=== PATIENT | female | born 1975 | race Caucasian/White ===

== ENCOUNTER 2017-08-14 10:49 | Outpatient (CLI) | payer OTHER ==
--- NOTE | 2017-08-16 18:21 | Mammography Report ---
DIGITAL SCREENING MAMMOGRAM: 08/14/2017 CLINICAL INDICATION: A 42-year-old nulliparous patient for screening. TECHNIQUE: Routine CC and MLO projections were obtained of the breasts. FINDINGS: The breasts demonstrate heterogeneously dense fibroglandular parenchyma bilaterally. No suspicious masses, clustered microcalcifications, or regions of architectural distortion are identified. IMPRESSION: NEGATIVE EXAMINATION. RECOMMENDATION: ROUTINE ANNUAL SCREENING UNLESS OTHERWISE CLINICALLY INDICATED. BIRADS category 1-negative. STANDARD QUALIFYING STATEMENTS 1. This examination was reviewed with the aid of Computed-Aided Detection (CAD). 2. A negative or benign imaging report should not delay biopsy if clinically suspicious findings are present. Consider surgical consultation if warranted. More than 5% of cancers are not identified by imaging. 3. Dense breasts may obscure an underlying neoplasm. TD: 08/16/2017 18:20
== END 2017-08-14 10:50 | disposition home or self-care (01) ==
LOC: DI 10:49
PROVIDERS: ATTEND Family Medicine
DX: Z12.31 Encounter for screening mammogram for malignant neoplasm of breast (principal)
CPT/HCPCS: 77067

== ENCOUNTER 2018-06-18 11:13 | Outpatient (CLI) | payer OTHER | END 2018-06-18 11:14 | disposition home or self-care (01) | LOC: SC 11:13 | PROVIDERS: ATTEND Internal Medicine Pulmonary Disease | DX: G47.33 Obstructive sleep apnea (adult) (pediatric) (principal) | CPT/HCPCS: 99203; 99212 ==

== ENCOUNTER 2018-08-08 11:25 | Outpatient (CLI) | payer OTHER ==
[2018-08-08 19:05] LABS: BASOPHILS % (AUTO) 0.2 %; EOSINOPHILS % (AUTO) 0.1 %; HGB - HEMOGLOBIN 13.5 g/dL (12.0-16.0); LYMPHOCYTES % (AUTO) 13.6 %; MEAN CORPUSCULAR HEMOGLOBIN 33.9 pg (27.0-31.0); MEAN CORPUSCULAR HGB CONC 33.1 g/dL (32.0-36.0); MEAN CORPUSCULAR VOLUME 102.6 fL (81.0-99.0); MEAN PLATELET VOLUME 7.4 fL (7.9-10.8); MONOCYTES # (AUTO) 0.4 10^3/uL (0.0-1.0); NEUTROPHILS # (AUTO) 6.1 10^3/uL (1.5-6.6); NEUTROPHILS % (AUTO) 81.1 %; PLT - PLATELET COUNT 217 10^3/uL (130-450); RED BLOOD COUNT 3.99 10^6/uL (4.20-5.40); RED CELL DISTRIBUTION WIDTH 13.6 % (12.0-15.0); WHITE BLOOD COUNT 7.6 x10^3/uL (4.8-10.8)
[2018-08-08 19:36] LABS: ALBUMIN 4.2 g/dL (3.2-5.5); ALBUMIN/GLOBULIN RATIO 1.8 (1.0-2.2); ALKALINE PHOSPHATASE 47 IU/L (42-121); ALT ALANINE AMINOTRANSFERASE 29 IU/L (10-60); AST ASPARTATE AMINOTRANSFERASE 31 IU/L (10-42); BILIRUBIN,TOTAL 0.8 mg/dL (0.2-1.0); BUN - BLOOD UREA NITROGEN 20 mg/dL (6-20); CALCIUM 9.2 mg/dL (8.5-10.3); CARBON DIOXIDE - CO2 26 mmol/L (21-32); CHLORIDE 99 mmol/L (101-111); CREATININE 0.7 mg/dL (0.4-1.0); GFR - MDRD 92 (>89); GLUCOSE 115 mg/dL (70-100); SODIUM 134 mmol/L (135-145); TOTAL PROTEIN 6.6 g/dL (6.7-8.2)
[2018-08-08 19:59] LABS: RHEUMATOID FACTOR NEGATIVE (Negative)
[2018-08-08 20:00] LABS: CRP - C-REACTIVE PROTEIN < 1.0 mg/dL (0-1.0)
[2018-08-10 14:06] LABS: ANA SCREEN NEGATIVE (NEGATIVE)
== END 2018-08-08 11:26 | disposition home or self-care (01) ==
LOC: LAB.WCP 11:25
PROVIDERS: ATTEND Family Medicine
DX: M25.50 Pain in unspecified joint (principal)
CPT/HCPCS: 36415; 80053; 83615; 85025; 85651; 86038; 86140; 86200; 86430

== ENCOUNTER 2018-10-01 14:01 | Outpatient (CLI) | payer OTHER ==
--- NOTE | 2018-10-02 09:00 | Mammography Report ---
Reason: ENCNTR SCREEN MAMMOGRAM FOR MALIGNANT NEOPLASM OF Procedure Date: 10/01/2018 Accession Number: [id number] / [id number] Procedure: GYPSY - Screening Mammo w/Christos CPT Code: FULL RESULT: EXAM: Screening Mammo w/Christos DATE: 10/01/2018 2:41 PM CLINICAL HISTORY: Screening encounter. History of early menses. History of nulliparity. TECHNIQUE: (B) - Bilateral CC and MLO views were obtained. COMPARISON: 08/14/2017. PARENCHYMAL PATTERN: (D) - The breast(s) demonstrate(s) heterogeneously dense fibroglandular parenchyma. FINDINGS: There are no suspicious masses, calcifications, or areas of distortion. IMPRESSION: Negative examination. BI-RADS category 1. RECOMMENDATION: (ANNUAL) - Recommend routine annual screening mammography. BI-RADS CATEGORY: (1) - Negative. STANDARD QUALIFYING STATEMENTS: 1. This examination was not reviewed with the aid of Computer-Aided Detection (CAD). 2. A negative or benign imaging report should not preclude biopsy if clinically suspicious findings are present. 3. Dense breasts may obscure an underlying neoplasm. 4. This examination was reviewed with the aid of 3D breast imaging (tomosynthesis).
== END 2018-10-01 14:02 | disposition home or self-care (01) ==
LOC: DI 14:01
PROVIDERS: ATTEND Family Medicine
DX: Z12.31 Encounter for screening mammogram for malignant neoplasm of breast (principal)
CPT/HCPCS: 77063; 77067

== ENCOUNTER 2018-12-31 12:51 | Emergency (ER) | payer OTHER ==
[2018-12-31 13:19] VITALS: BP 136/106
--- NOTE | 2018-12-31 14:08 | ED Physician Documentation ---
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 HEENT: None Psych: None Derm: None - Past Surgical History Past Surgical History: No - Present Medications Home Medications: Ambulatory Orders Medication Instructions Recorded Confirmed Amitriptyline HCl 25 mg PO DAILY 08/03/15 08/03/15 Butalb/Acetaminophen/Caffeine 1 each PO Q6H PRN #15 capsule 08/03/15 [Fioricet 50-300-40 mg Capsule] Metoclopramide [Reglan] 10 mg PO Q6H PRN #15 tablet 08/03/15 Norgestimate-Ethinyl Estradiol 1 each PO DAILY 08/03/15 08/03/15 [Trinessa Lo Tablet] - Allergies Allergies/Adverse Reactions: Allergies Allergy/AdvReac Type Severity Reaction Status Date / Time erythromycin base Allergy Anaphylaxis Verified 08/03/15 18:07 shellfish derived Allergy Nausea Verified 08/03/15 18:07 sumatriptan [From Imitrex] Allergy Edema Verified 08/03/15 19:04 sumatriptan succinate * Allergy Edema Verified 08/03/15 19:04 [From Imitrex] - Social History Does the pt smoke?: No Smoking Status: Never smoker Does the pt drink ETOH?: Yes Does the pt have substance abuse?: No - Immunizations Immunizations are current?: Yes Immunizations: TDAP >10years/unknown - POLST Patient has POLST: No PD ED PE NORMAL - Vitals Vital signs reviewed: Yes - General General: Alert and oriented X 3, No acute distress - HEENT HEENT: PERRL, EOMI, Ears normal, Other (red pillar, no swelling/exudate or LAD) - Neck Neck: Supple, no meningeal sign, No bony TTP - Neuro Neuro: Alert and oriented X 3, Normal speech Results - Vitals Vitals: Vital Signs - 24 hr 12/31/18 13:16 Temperature 36.7 C Heart Rate 95 Respiratory 18 Rate Blood Pressure 136/106 H O2 Saturation 96 Oxygen O2 Source Room air - Labs Labs: Laboratory Tests 12/31/18 13:19 Group A Strep Rapid Negative Departure - Departure Disposition: 01 Home, Self Care Clinical Impression: Sore throat Condition: Good Record reviewed to determine appropriate education?: Yes Instructions: ED Pharyngitis Viral Report Pending Comments: Ibuprofen as needed for pain, return for new or worsening symptoms. Follow-up with your doctor in 3 to 5 days if not better. Your blood pressure was elevated today on check into the emergency department. This does not mean that you have hypertension, it is a common phenomenon to come to the emergency department and have elevated blood pressure. I recommend that you see your primary care physician within the week to have it rechecked when you are feeling better.
== END 2018-12-31 14:39 | disposition home or self-care (01) ==
LOC: ED 12:51
DX: J02.9 Acute pharyngitis, unspecified (principal); R03.0 Elevated blood-pressure reading, without diagnosis of hypertension
CPT/HCPCS: 87070; 87430; 99282; 99283

== ENCOUNTER 2019-04-23 08:00 | Outpatient (CLI) | payer OTHER ==
[2019-04-23 13:26] LABS: HB2 TOTAL 13.8 g/dL; HEMOGLOBIN A1C 0.51 g/dL; HEMOGLOBIN A1C % 5.5 % (4.6-6.2)
[2019-04-26 00:07] LABS: ALBUMIN 4.2 g/dL (3.8-4.8); ALPHA 1 GLOBULIN 0.3 g/dL (0.2-0.3); ALPHA 2 GLOBULIN 0.7 g/dL (0.5-0.9); BETA 1 GLOBULIN 0.4 g/dL (0.4-0.6); BETA 2 GLOBULIN 0.3 g/dL (0.2-0.5); GAMMA GLOBULIN 0.9 g/dL (0.8-1.7)
== END 2019-04-23 23:59 | disposition home or self-care (01) ==
LOC: LAB.WCP 08:00
PROVIDERS: ATTEND Family Medicine
DX: G62.9 Polyneuropathy, unspecified (principal); R73.01 Impaired fasting glucose
CPT/HCPCS: 36415; 82607; 83036; 83921; 84155; 84165; 84443

== ENCOUNTER 2019-09-30 19:19 | Outpatient (CLI) | payer OTHER | END 2019-09-30 19:20 | disposition home or self-care (01) | LOC: COV 19:19 | PROVIDERS: ATTEND Family Medicine | DX: R50.9 Fever, unspecified (principal); M79.10 Myalgia, unspecified site; R53.83 Other fatigue; J02.9 Acute pharyngitis, unspecified | CPT/HCPCS: 81599 ==

== ENCOUNTER 2019-12-27 08:57 | Day surgery (SDC) | payer MEDICAID ==
[2019-12-27] MEDS ORDERED: LACTATED RINGERS 1,000 ML IV ONE ×2 (09:06→11:22)
[2019-12-27] MEDS ORDERED: LIDO GARGLE 30 ML BOTTLE ONE (09:18)
[2019-12-27 09:19] LABS: HCG UR QUAL NEGATIVE
--- NOTE | 2019-12-27 09:29 | ANESTHESIA ---
Pre-Anesthesia VS, & Labs - Diagnosis Abdominal bloating, poor appetite, red blood per rectum - Procedure EGD, Cscope Vital Signs: Temp Pulse Resp BP Pulse Ox 36.3 C L 50 L 12 109/78 100 12/27/19 09:06 12/27/19 09:06 12/27/19 09:06 12/27/19 09:06 12/27/19 09:06 Height 5 ft 7 in Weight (kg) 66.4 kg Body Mass Index 22.8 - NPO >8 hours - Is Patient ?: No - Lab Results Lab results reviewed: Yes Home Medications and Allergies Home Medications: Ambulatory Orders Fluticasone [Flonase] 1 DAILY 12/26/19 Gabapentin 1 BID 12/26/19 Magnesium 2 DAILY 12/26/19 Tizanidine HCl 1 ONCE PRN 12/26/19 Topiramate [Topamax] 1 BID 12/26/19 diphenhydrAMINE [Benadryl] 1 PRN 12/26/19 Fluticasone [Flonase] 1 DAILY 12/26/19 Gabapentin 1 BID 12/26/19 Magnesium 2 DAILY 12/26/19 Tizanidine HCl 1 ONCE PRN 12/26/19 Topiramate [Topamax] 1 BID 12/26/19 diphenhydrAMINE [Benadryl] 1 PRN 12/26/19 Allergies/Adverse Reactions: Allergies Allergy/AdvReac Type Severity Reaction Status Date / Time erythromycin base Allergy Anaphylaxis Verified 08/03/15 18:07 prednisone Allergy Edema Verified 12/26/19 13:28 shellfish derived Allergy Nausea Verified 08/03/15 18:07 sumatriptan [From Imitrex] Allergy Edema Verified 08/03/15 19:04 sumatriptan succinate * Allergy Edema Verified 08/03/15 19:04 [From Imitrex] Anes History & Medical History - Anesthetic History Anesthesia Complications: reports: No previous complications Family history of Anesthesia Complications: Denies Family history of Malignant Hyperthermia: Denies - Medical History Cardiovascular: reports: None Pulmonary: reports: None Gastrointestinal: reports: GI bleed, Other Urinary: reports: None Musculoskeletal: reports: Chronic back pain Endocrine/Autoimmune: reports: None Blood Disorders: reports: None Skin: reports: Herpes zoster, Other Smoking Status: Never smoker - Surgical History Eyes Ears Nose Throat (EENT): Other Exam General: Alert, Oriented x3, Cooperative Dental: WNL Mouth Openin Fingerbreadth Neck Mobility: Normal Mallampati classification: II Thyromental Distance: greater than 6 cm Respiratory: Lungs clear, Normal breath sounds, No respiratory distress Cardiovascular: Regular rate Neurological: Normal speech Mental/Cognitive Status: Alert/Oriented X3, Normal for patient Cognitive Status: Within normal limits Plan Anesthesia Type: MAC Consent for Procedure(s) Verified and Reviewed: Yes Code Status: Attempt Resuscitation ASA classification: 2-Mild systemic disease Is this case an emergency?: No
[2019-12-27] MEDS ORDERED: BENZOCAINE/TETRACAINE/BUTAMBEN 20 GM TOP ONE ×2 (09:59→10:37)
[2019-12-27] MEDS ORDERED: LIDO GARGLE 30 ML BOTTLE PO ONE (09:59)
[2019-12-27 11:39] VITALS: BP 118/96
--- NOTE | 2019-12-27 13:24 | PROCEDURE REPORT ---
DATE OF SERVICE: 12/27/2019 Physician: Aman Lizarraga MD PREOPERATIVE DIAGNOSES 1. Chronic reflux. 2. Chronic mild abdominal discomfort and bloating. 3. Occasional bright red blood per rectum. POSTOPERATIVE DIAGNOSES 1. Chronic reflux. 2. Chronic mild abdominal discomfort and bloating. 3. Occasional bright red blood per rectum. 4. Mild gastritis. 5. Wide open or loose lower esophageal sphincter. 6. Distal rectal polyp. 7. Possible mid to distal sigmoid colon polyp. PROCEDURES PERFORMED 1. EGD with biopsies. 2. Colonoscopy with biopsy. SURGEON: Aman Lizarraga MD ANESTHESIA: Monitored anesthesia care per anesthesia. ESTIMATED BLOOD LOSS: None. SPECIMENS 1. Random biopsies performed of the duodenum, stomach, GE junction and distal esophagus. 2. Biopsy performed for ELISABETH. 3. Random biopsy ascending colon and descending colon. 4. Biopsy, possible sessile polyp, sigmoid colon. 5. Biopsy and excision of a small, what appeared to be hyperplastic polyp distal rectum. INDICATIONS FOR PROCEDURE: Patient is a 44-year-old with a longstanding mild reflux symptoms. She takes antacids daily. She also has occasional bloating and mid abdominal discomfort. She has had these symptoms for 1 year. She has occasional bright red blood per rectum. Family history is positive for colon polyps. She presents for EGD and colonoscopy. DETAILS OF PROCEDURE: Patient was properly identified, brought to the operating room, and placed in left lateral decubitus position. Monitored anesthesia care was given. Upper endoscopy was first performed. The scope was easily placed down into the second portion of the duodenum. Random biopsies were performed. She did not have an ulcer or inflammation of the duodenum. She did have mild inflammation of the distal stomach. Biopsies were performed. A retroflex view revealed a loose lower esophageal sphincter. Biopsies were taken of the GE junction and distal esophagus. The esophagus grossly was completely normal. She tolerated this procedure well. All biopsies were performed cold with forceps. A colonoscopy was then performed. A normal digital rectal examination. She did not have a fissure or hemorrhoids. Colonoscope was passed to the cecum, identified by appendix and iliocecal valve. The colonoscope was slowly withdrawn. Random cold forcep biopsies were performed of the ascending colon and the descending colon. Possible flat polyp or sessile polyp of the sigmoid colon was biopsied and removed. A distal rectal polyp was biopsied and removed. A retroflex view was normal. Scope was withdrawn. She tolerated the procedure well. TD: 12/27/2019 11:31 TALON
== END 2019-12-27 08:58 | disposition home or self-care (01) ==
LOC: SDS 08:57
PROVIDERS: ATTEND Surgery
PROC: 0DB38ZX Excision of Lower Esophagus, Via Natural or Artificial Opening Endoscopic, Diagnostic (ICD-10-PCS; 2019-12-27)
PROC: 0DB48ZX Excision of Esophagogastric Junction, Via Natural or Artificial Opening Endoscopic, Diagnostic (ICD-10-PCS; 2019-12-27)
PROC: 0DBP8ZX Excision of Rectum, Via Natural or Artificial Opening Endoscopic, Diagnostic (ICD-10-PCS; 2019-12-27)
PROC: 0DBN8ZX Excision of Sigmoid Colon, Via Natural or Artificial Opening Endoscopic, Diagnostic (ICD-10-PCS; 2019-12-27)
PROC: 0DB98ZX Excision of Duodenum, Via Natural or Artificial Opening Endoscopic, Diagnostic (ICD-10-PCS; principal; 2019-12-27 10:00)
PROC: 0DB68ZX Excision of Stomach, Via Natural or Artificial Opening Endoscopic, Diagnostic (ICD-10-PCS; 2019-12-27 10:00)
DX: R14.0 Abdominal distension (gaseous) (principal); R10.9 Unspecified abdominal pain; K29.50 Unspecified chronic gastritis without bleeding; K63.5 Polyp of colon; R19.4 Change in bowel habit; K92.1 Melena; K20.9 Esophagitis, unspecified; K21.9 Gastro-esophageal reflux disease without esophagitis; R63.0 Anorexia; G89.29 Other chronic pain; G47.30 Sleep apnea, unspecified; Z79.899 Other long term (current) drug therapy; Z83.71 Family history of colonic polyps; Z87.891 Personal history of nicotine dependence
CPT/HCPCS: 43239; 45380; 81025; 87081; A9270; J7120

== ENCOUNTER 2020-03-02 12:53 | Outpatient (CLI) | payer MEDICAID ==
[2020-03-02] MEDS ORDERED: GADOBUTROL 7.5 MMOL/7.5 ML VIAL ONE (13:31)
[2020-03-02] MEDS ORDERED: GADOBUTROL 7.5 MMOL/7.5 ML VIAL IVP ONE (14:09)
--- NOTE | 2020-03-02 16:57 | MRI Report ---
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 After the administration of contrast, axial and coronal T1 spin echo with fat saturation through the brain. COMPARISON: None. FINDINGS: Image quality: Excellent. CSF spaces: Basal cisterns are patent. No extra-axial fluid collections. Ventricles are normal in size and shape. Brain: No midline shift. No intracranial bleeds or masses. No abnormal intracranial enhancement. There is cerebral volume loss for age. There is periventricular white matter chronic small vessel is chemic change. The brainstem appears normal. Diffusion-weighted images demonstrate no acute ischemi c insults. No chronic ischemic insults. Normal intravascular flow voids are present. Skull and face: Calvarial marrow is normal in signal. Orbits appear normal. Sinuses: Small mucous retention cyst versus polyp noted in the floor of the right maxillary sinus. Mi nimal mucosal thickening noted in the maxillary sinuses. Mastoids appear clear. IMPRESSION: 1. No intracranial disease process. 2. No abnormal intracranial mass or mass effect. 3. No suspicious postcontrast enhancement. 4. No abnormal intracranial signal. Reviewed by: Raiza Black MD, PhD on 03/02/2020 4:56 PM PDT Approved by: Raiza Black MD, PhD on 03/02/2020 4:56 PM PDT Station ID: [id number]
== END 2020-03-02 12:54 | disposition home or self-care (01) ==
LOC: DI 12:53
PROVIDERS: ATTEND Psychiatry & Neurology Neurology
DX: G43.711 Chronic migraine without aura, intractable, with status migrainosus (principal); R20.2 Paresthesia of skin
CPT/HCPCS: 70553; A9585

== ENCOUNTER 2020-04-21 08:00 | Outpatient (CLI) | payer MEDICAID ==
[2020-04-21 18:09] LABS: BASOPHILS % (AUTO) 0.6 %; EOSINOPHILS % (AUTO) 0.6 %; HGB - HEMOGLOBIN 12.8 g/dL (12.0-16.0); LYMPHOCYTES % (AUTO) 19.8 %; MEAN CORPUSCULAR HEMOGLOBIN 39.1 pg (27.0-31.0); MEAN PLATELET VOLUME 9.2 fL (7.9-10.8); MONOCYTES # (AUTO) 0.4 10^3/uL (0.0-1.0); MONOCYTES % (AUTO) 8.3 %; NEUTROPHILS # (AUTO) 3.5 10^3/uL (1.5-6.6); NEUTROPHILS % (AUTO) 70.3 %; PLT - PLATELET COUNT 225 10^3/uL (130-450); RED BLOOD COUNT 3.27 10^6/uL (4.20-5.40); RED CELL DISTRIBUTION WIDTH 14.4 % (12.0-15.0)
[2020-04-21 18:30] LABS: ALBUMIN 4.3 g/dL (3.2-5.5); ALBUMIN/GLOBULIN RATIO 1.7 (1.0-2.2); ALKALINE PHOSPHATASE 60 IU/L (42-121); ALT ALANINE AMINOTRANSFERASE 42 IU/L (10-60); AST ASPARTATE AMINOTRANSFERASE 57 IU/L (10-42); BILIRUBIN,TOTAL 0.8 mg/dL (0.2-1.0); BUN - BLOOD UREA NITROGEN 8 mg/dL (6-20); CALCIUM 9.6 mg/dL (8.5-10.3); CARBON DIOXIDE - CO2 24 mmol/L (21-32); CHLORIDE 103 mmol/L (101-111); CHOL/HDL RATIO 3.4 (<4.4); CHOLESTEROL 256 mg/dL; CREATININE 0.6 mg/dL (0.4-1.0); GLUCOSE 129 mg/dL (70-100); HDL CHOLESTEROL 75 mg/dL; LDL CHOLESTEROL,CALCULATED 136 mg/dL; LDL/HDL RATIO 1.8 (<4.4); SODIUM 139 mmol/L (135-145); TOTAL PROTEIN 6.9 g/dL (6.7-8.2); VLDL CHOLESTEROL 45 mg/dL
[2020-04-21 19:19] LABS: PLATELET ESTIMATE, MANUAL NORMAL (130-450,000) (NORMAL); PLATELET MORPHOLOGY NORMAL APPEARANCE (NORMAL)
== END 2020-04-21 23:59 | disposition home or self-care (01) ==
LOC: LAB.WCP 08:00
PROVIDERS: ATTEND Family Medicine
DX: Z00.00 Encounter for general adult medical examination without abnormal findings (principal)
CPT/HCPCS: 36415; 80053; 80061; 83721; 84443; 85025

== ENCOUNTER 2020-12-01 13:00 | Outpatient (CLI) | payer MEDICAID ==
--- NOTE | 2020-12-02 13:24 | Mammography Report ---
BILATERAL DIGITAL SCREENING MAMMOGRAM 3D/2D: 12/01/2020 CLINICAL: Routine screening. Comparison is made to exams dated: 11/26/2019 mammogram, 10/01/2018 mammogram, and 08/14/2017 mammogram - [facility]. The tissue of both breasts is heterogeneously dense. This may lower the sensitivity of mammography. No significant masses, calcifications, or other findings are seen in either breast. There has been no significant interval change. IMPRESSION: NEGATIVE There is no mammographic evidence of malignancy. A 1 year screening mammogram is recommended. This exam was interpreted at Station ID: [id number]. NOTE: For mammograms, a report in lay terms will be sent to the patient. Approximately 15% of breast malignancies will not be visualized mammographically. In the management of a palpable breast mass, a negative mammogram must not discourage biopsy of a clinically suspicious lesion. Electronically Signed By: Alo Sebastian M.D. ar/[email or web address]:12/01/2020 14:04:49 ACR BI-RADS Category 1: Negative 3341F PARENCHYMAL PATTERN: (D) - The breast(s) demonstrate(s) heterogeneously dense fibroglandular yessi rizo. BI-RADS CATEGORY: (1) - 1 RECOMMENDATION: (ANNUAL) - Recommend routine annual screening mammography. [id number] 1 year screening LATERALITY: (B)
== END 2020-12-01 13:01 | disposition home or self-care (01) ==
LOC: DI 13:00
DX: Z12.31 Encounter for screening mammogram for malignant neoplasm of breast (principal)

== ENCOUNTER 2020-12-20 08:00 | Outpatient (CLI) | payer MEDICAID | END 2020-12-20 08:01 | disposition home or self-care (01) | LOC: LAB.S 08:00 | PROVIDERS: ATTEND Physician Assistant | DX: R30.0 Dysuria (principal) | CPT/HCPCS: 87086; 87181 ==

== ENCOUNTER 2021-05-12 08:00 | Outpatient (CLI) | payer MEDICAID ==
--- NOTE | 2021-05-12 17:21 | XRAY Report ---
PROCEDURE: Lumbar Spine 2 View INDICATIONS: LUMBAR RADICULOPATHY TECHNIQUE: 3 views of the lumbar spine were acquired. COMPARISON: None. FINDINGS: Bones: 5 nex-ouo-ndrfhlt vertebrae are present. There is straightening of normal lumbar lordosis. M ild degenerative endplate changes are seen at L4-5 and L5-S1 levels. No vertebral body compression f ractures. No suspicious bony lesions. Soft tissues: Overlying bowel gas pattern is normal. No suspicious soft tissue calcifications. IMPRESSION: Mild degenerative disc disease in lower lumbar spine. No acute compression fracture or s pondylolisthesis. Reviewed by: Tevin Cho MD on 05/12/2021 5:20 PM PST Approved by: Tevin Cho MD on 05/12/2021 5:20 PM PST Station ID: [id number]
== END 2021-05-12 23:59 | disposition home or self-care (01) ==
LOC: DI.N 08:00
PROVIDERS: ATTEND Family Medicine
DX: M51.36 Other intervertebral disc degeneration, lumbar region (principal)

== ENCOUNTER 2021-05-31 14:41 | Emergency (ER) | payer MEDICAID ==
--- NOTE | 2021-05-31 15:09 | ED Physician Documentation ---
PD HPI BACK PAIN - Stated complaint Stated Complaint: LOW BACK & BODY PX - Chief complaint Chief Complaint: Back Pain - History obtained from History obtained from: Patient - History of Present Illness Timing - onset: How many months ago (1 month worsening chronic low back pain without reinjury per se. Has been Rx gabapentin and Tizanidine. Taking Aleve. no improvement with pain and is unreletning the past week or so. Went to [facility] and [facility], with referrals for MRI, but insurance denied until trials of meds and PT.) Timing - duration: Months (1) Timing - details: Gradual onset, Still present, Constant Location: Lower Quality: Pain, Spasm, Aching Associated symptoms: No: Fever, Weakness, Numbness, Incontinent of urine Worsened by: Movement Contributing factors: No: Trauma Similar symptoms before: Diagnosis (S1 nerve root process in the past MRIs.) Recently seen: Clinic Review of Systems Constitutional: denies: Fever, Chills Nose: denies: Rhinorrhea / runny nose, Congestion Throat: denies: Sore throat Cardiac: denies: Chest pain / pressure Respiratory: denies: Cough GI: denies: Abdominal Pain : denies: Dysuria, Incontinent Skin: denies: Rash, Lesions Neurologic: denies: Focal weakness, Numbness PD PAST MEDICAL HISTORY - Past Medical History Cardiovascular: None Respiratory: None Endocrine/Autoimmune: None GI: None 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 HEENT: None Psych: None Musculoskeletal: Chronic back pain Derm: None - Past Surgical History Past Surgical History: No - Present Medications Home Medications: Ambulatory Orders Medication Instructions Recorded Confirmed Metoclopramide [Reglan] 10 mg PO Q6H PRN #15 tablet 08/03/15 12/27/19 Fluticasone [Flonase] 1 spray BRIT DAILY 12/26/19 12/27/19 Gabapentin 1 tab PO BID 12/26/19 12/27/19 Magnesium 2 tab PO DAILY 12/26/19 12/27/19 Tizanidine HCl 1 tab PO ONCE PRN 12/26/19 12/27/19 Topiramate [Topamax] 1 tab PO BID 12/26/19 12/27/19 diphenhydrAMINE [Benadryl] 25 mg PO PRN PRN 12/26/19 12/27/19 Levonorgestrel 20 Mcg/24H [Mirena] 1 each IY DAILY 12/27/19 12/27/19 Omeprazole Magnesium [Prilosec] 2.5 mg PO PRN PRN 12/27/19 12/27/19 Ondansetron HCl [Zofran] 4 mg PO PRN PRN 12/27/19 12/27/19 Acetaminophen [Acetaminophen Extra 500 mg PO QID PRN 15 Days #60 05/31/21 Strength] tablet Docusate Sodium 100Mg Capsule 100 mg PO DAILY #20 cap 05/31/21 [Colace 100Mg Capsule] Meloxicam [Mobic] 7.5 mg PO BID 15 Days #30 tablet 05/31/21 Ondansetron Odt [Zofran] 4 mg TL Q6H PRN #20 tablet 05/31/21 oxyCODONE [Roxicodone] 5 mg PO Q6H PRN #20 tablet 05/31/21 - Allergies Allergies/Adverse Reactions: Allergies Allergy/AdvReac Type Severity Reaction Status Date / Time erythromycin base Allergy Anaphylaxis Verified 05/31/21 14:54 prednisone Allergy Edema Verified 05/31/21 14:54 shellfish derived Allergy Nausea Verified 05/31/21 14:54 sumatriptan [From Imitrex] Allergy Edema Verified 05/31/21 14:54 sumatriptan succinate * Allergy Edema Verified 05/31/21 14:54 [From Imitrex] - Social History Does the pt smoke?: No Smoking Status: Never smoker Does the pt drink ETOH?: Yes Does the pt have substance abuse?: No - Immunizations Immunizations are current?: Yes Immunizations: TDAP >10years/unknown - POLST Patient has POLST: No PD ED PE NORMAL - Vitals Vital signs reviewed: Yes - General General: Alert and oriented X 3, Well developed/nourished, Other (appears in pain with guarded ROM low back. ALso seems frustrated at unrelenting pain. ) - Cardiac Cardiac: RRR, No murmur - Respiratory Respiratory: Clear bilaterally - Abdomen Abdomen: Soft, Non tender - Back Back: No CVA TTP, Other (tender to touch mildly lower lumbar and right SI area. SHe says does not pinpoint nor trigger the pain. ) - Derm Derm: Normal color, Warm and dry - Neuro Neuro: Alert and oriented X 3, No motor deficit, No sensory deficit (symmetric to light touch and pinprick. ), Normal speech, Other (slightly less reflex left patella) Results - Vitals Vitals: Vital Signs - 24 hr 05/31/21 05/31/21 14:48 16:52 Temperature 36.1 C L Heart Rate 56 L 48 L Respiratory 16 16 Rate Blood Pressure 101/56 L 117/74 O2 Saturation 100 100 Oxygen O2 Source Room air PD MEDICAL DECISION MAKING - ED course Complexity details: considered differential (no indication for emergent MRI. Can treat with different meds. She states she had side effects to steroids in the past, so defer use of that per pateint. ), d/w patient Departure - Departure Disposition: Home, Self Care Clinical Impression: Low back pain Qualifiers: Chronicity: chronic Back pain laterality: unspecified Sciatica presence: unspecified whether sciatica present Qualified Code(s): M54.50 - Low back pain, unspecified Condition: Stable Record reviewed to determine appropriate education?: Yes Follow-Up: Yi Salmeron DO [Primary Care Provider] - Prescriptions: Acetaminophen [Acetaminophen Extra Strength] 500 mg PO QID PRN 15 Days #60 tablet PRN Reason: Pain Docusate Sodium 100Mg Capsule [Colace 100Mg Capsule] 100 mg PO DAILY #20 cap Meloxicam [Mobic] 7.5 mg PO BID 15 Days #30 tablet oxyCODONE [Roxicodone] 5 mg PO Q6H PRN #20 tablet PRN Reason: Pain Ondansetron Odt [Zofran] 4 mg TL Q6H PRN #20 tablet PRN Reason: Nausea / Vomiting Comments: Unfortunately we are not able to get nonemergent MRIs done through the ER and typically cannot get MRIs done through the ER at all. They need to be approved and scheduled. In order to help your back pain, we can try a different nonsteroidal anti- inflammatory since you are sensitive to steroids. I wrote a prescription for meloxicam to use twice daily with food for the next 10 days or so. Continue the tizanidine muscle relaxant to help with stiffness and spasms. Heat stretching and physical treatments such as massage chiropractic and acupuncture are all good. Work through your primary care to see about physical therapy. Also take Tylenol 500 mg 4 times a day regularly for the next week or 2 for pain. To that add oxycodone every 6 hours if needed for worse pain. Along with the oxycodone, also ondansetron if needed for nausea related to it. It would also be good to take docusate stool softener daily for the next week or 2 to prevent constipation from any of the above medications. Follow-up with your primary care regarding further referral and evaluation and potential physical therapy. I transmitted your prescriptions to [facility] pharmacy in [place]. I am prescribing a short course of narcotic pain medication for you. These are potentially dangerous and addictive medications that should be used carefully. These medications may constipate you. Take an uvee-zek-qjewgft stool softener such as docusate twice daily with plenty of water while taking these medications. If you go 24 hours without a bowel movement, take cdxg-umx-jstyctn MiraLAX, per package instructions. Do not drink or drive while taking these medications. If you received narcotic or sedating medications while in the emergency department do not drive for 24 hours. Store this medication in a safe, secure place and out of reach of children. It is a violation of federal law to give or sell this medication to another person or to use in a manner other than prescribed. The ED will not refill narcotic prescriptions, including prescriptions lost or stolen. You can dispose of unwanted medications at the [facility]'s office or at several pharmacies such as [facility]. Discharge Date/Time: 05/31/21 16:53
[2021-05-31] MEDS ORDERED: KETOROLAC 30 MG/ML VIAL IM STA (15:55)
[2021-05-31] MEDS ORDERED: ACETAMINOPHEN 325 MG TABLET PO STA (15:56)
[2021-05-31] MEDS ORDERED: oxyCODONE 5 MG TABLET PO STA (15:56)
[2021-05-31 16:53] VITALS: BP 117/74
== END 2021-05-31 16:53 | disposition home or self-care (01) ==
LOC: ED 14:41
DX: M54.50 Low back pain, unspecified (principal); G89.29 Other chronic pain
CPT/HCPCS: 96372; 99284; 99285; A9270

== ENCOUNTER 2021-07-08 15:22 | Outpatient (CLI) | payer MEDICAID ==
--- NOTE | 2021-07-08 16:35 | MRI Report ---
PROCEDURE: Lumbar Spine W/O INDICATIONS: STRAIN OF LUMBAR REGION TECHNIQUE: Noncontrast sagittal T1 spin echo and T2 fast echo, sagittal STIR, axial T1 and T2 fast spin echo thr ough the lumbar spine. In cases with scoliosis, additional coronal T2 fast spin echo may be performe d. COMPARISON: None. FINDINGS: Normal lumbar vertebral body height, alignment, and signal intensity. No suspicious focal marrow sign al abnormality or bone marrow edema. Regional prevertebral and paraspinous soft tissues are normal in appearance. T12-L1: No spinal canal or neural foraminal stenosis from T12-L1 through L3-L4. L4-L5, diffuse disc bulge and a superimposed broad-based posterior disc protrusion flatten and indent the ventral thecal sac. Mild mass effect on the traversing L5 nerve roots. Annular fissure of the di sc in the central and paracentral zones (series 601 image 10). Foraminal components of the disc bulge produces mild neural foraminal narrowing on the left in conjunction with facet hypertrophy. At L5-S1, diffuse disc bulge with a superimposed protrusion the right paracentral, subarticular, and foraminal zones. Disc material displaces and possibly impinges upon the descending right S1 nerve blanche ts in the right subarticular zone. Foraminal components of the disc bulge and facet hypertrophy combi ne to produce mild neural foraminal narrowing on the right. IMPRESSION: Degenerative changes L5-S1 and to a lesser degree at L4-L5. Possible impingement of the descending S1 nerve roots in the right subarticular zone at L5-S1. Reviewed by: Dank Estevez MD on 07/08/2021 4:34 PM PST Approved by: Dank Estevez MD on 07/08/2021 4:34 PM PST Station ID: [id number]
== END 2021-07-08 15:23 | disposition home or self-care (01) ==
LOC: DI 15:22
PROVIDERS: ATTEND Physician Assistant Surgical
DX: M51.16 Intervertebral disc disorders with radiculopathy, lumbar region (principal); M47.26 Other spondylosis with radiculopathy, lumbar region; M48.061 Spinal stenosis, lumbar region without neurogenic claudication; M51.17 Intervertebral disc disorders with radiculopathy, lumbosacral region; M47.27 Other spondylosis with radiculopathy, lumbosacral region; M48.07 Spinal stenosis, lumbosacral region

== ENCOUNTER 2021-10-12 11:44 | Outpatient (CLI) | payer MEDICAID ==
[2021-10-12 18:35] LABS: BILIRUBIN,URINE NEGATIVE (NEGATIVE); CLARITY,URINE HAZY (CLEAR); GLUCOSE, URINE (UA) NEGATIVE (NEGATIVE); KETONES,URINE (UA) NEGATIVE (NEGATIVE); LEUKOCYTE ESTERASE, URINE TRACE (NEGATIVE); NITRITE,URINE POSITIVE (NEGATIVE); OCCULT BLOOD,URINE NEGATIVE (NEGATIVE); PH,URINE 6.5 PH (5.0-7.5); PROTEIN,URINE NEGATIVE (NEGATIVE); UROBILINOGEN,URINE 0.2 (NORMAL) E.U./dL (NORMAL)
[2021-10-12 18:57] LABS: RBC,URINE 0-5 /HPF (0-5)
[2021-10-12 18:58] LABS: BACTERIA,URINE Moderate /HPF (None Seen); SQUAMOUS EPITHELIAL CELL,UR MOD Squamous (<= Few)
== END 2021-10-12 23:59 | disposition home or self-care (01) ==
LOC: LAB 11:44
PROVIDERS: ATTEND Nurse Practitioner
DX: R30.0 Dysuria (principal)
CPT/HCPCS: 81001; 87086

== ENCOUNTER 2021-10-20 11:16 | Outpatient (CLI) | payer MEDICAID ==
[2021-10-20 11:29] LABS: BASOPHILS % (AUTO) 0.4 %; EOSINOPHILS # (AUTO) 0.1 10^3/uL (0.0-0.7); EOSINOPHILS % (AUTO) 2.5 %; HCT - HEMATOCRIT 43.3 % (37.0-47.0); HGB - HEMOGLOBIN 14.6 g/dL (12.0-16.0); LYMPHOCYTES # (AUTO) 1.9 10^3/uL (1.5-3.5); LYMPHOCYTES % (AUTO) 40.2 %; MEAN CORPUSCULAR HEMOGLOBIN 33.1 pg (27.0-31.0); MEAN CORPUSCULAR HGB CONC 33.7 g/dL (32.0-36.0); MEAN CORPUSCULAR VOLUME 98.2 fL (81.0-99.0); MEAN PLATELET VOLUME 8.6 fL (7.9-10.8); MONOCYTES # (AUTO) 0.4 10^3/uL (0.0-1.0); MONOCYTES % (AUTO) 9.2 %; NEUTROPHILS # (AUTO) 2.3 10^3/uL (1.5-6.6); NEUTROPHILS % (AUTO) 47.5 %; PLT - PLATELET COUNT 243 10^3/uL (130-450); RED BLOOD COUNT 4.41 10^6/uL (4.20-5.40); RED CELL DISTRIBUTION WIDTH 14.2 % (12.0-15.0); WHITE BLOOD COUNT 4.8 x10^3/uL (4.8-10.8)
[2021-10-20 11:49] LABS: ALBUMIN 4.2 g/dL (3.2-5.5); ALBUMIN/GLOBULIN RATIO 1.2 (1.0-2.2); BILIRUBIN,TOTAL 0.9 mg/dL (0.2-1.0); CALCIUM 10.1 mg/dL (8.5-10.3); POTASSIUM 4.2 mmol/L (3.5-5.0); TOTAL PROTEIN 7.6 g/dL (6.7-8.2)
[2021-10-20 12:06] LABS: THYROID STIMULATING HORMONE 1.46 uIU/mL (0.34-5.60)
[2021-10-20 12:09] LABS: FREE T4 (FREE THYROXINE) 0.74 ng/dL (0.58-1.64)
== END 2021-10-20 11:17 | disposition home or self-care (01) ==
LOC: LAB 11:16
PROVIDERS: ATTEND Nurse Practitioner
DX: R25.1 Tremor, unspecified (principal)
CPT/HCPCS: 36415; 80053; 82977; 84439; 84443; 85025

== ENCOUNTER 2021-10-26 12:30 | Outpatient (CLI) | payer MEDICAID | END 2021-10-26 23:59 | disposition home or self-care (01) | LOC: LAB 12:30 | PROVIDERS: ATTEND Nurse Practitioner | DX: R30.0 Dysuria (principal) | CPT/HCPCS: 87086 ==

== ENCOUNTER 2021-11-24 08:53 | Outpatient (CLI) | payer MEDICAID ==
--- NOTE | 2021-11-24 14:03 | Ultrasound Report ---
PROCEDURE: Abdomen Complete INDICATIONS: ABD PAIN TECHNIQUE: Real-time scanning was performed of the abdominal and retroperitoneal organs, with image documentatio n. COMPARISON: None. FINDINGS: Liver: Approximately 9 mm nonvascular hyperechoic lesion in the posterosuperior right hepatic lobe it is consistent with hemangioma. Otherwise normal appearance of the liver. Gallbladder: Normal Biliary ducts: Normal. Pancreas: Visualized portions of the pancreas are sonographically normal. Spleen: Spleen is normal in size and homogeneous in echotexture. Kidneys: Round echogenic focus measuring 8-9 mm in the lower pole right kidney likely represents an a ngiomyolipoma. Kidneys are otherwise normal in appearance. Aorta: Visualized aorta is normal in caliber at less than 3 cm. Iliacs: Proximal common iliac arteries are normal in caliber at less than 2.5 cm. IVC: Intrahepatic inferior vena cava is patent. Miscellaneous: No free abdominal fluid. IMPRESSION: No acute or significant abnormality. 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 Reviewed by: Dank Estevez MD on 11/24/2021 2:01 PM PDT Approved by: Dank Estevez MD on 11/24/2021 2:01 PM PDT Station ID: [id number]
== END 2021-11-24 08:54 | disposition home or self-care (01) ==
LOC: DI 08:53
PROVIDERS: ATTEND Nurse Practitioner
DX: R10.11 Right upper quadrant pain (principal); D18.09 Hemangioma of other sites; D17.71 Benign lipomatous neoplasm of kidney

== ENCOUNTER 2021-12-06 10:02 | Outpatient (CLI) | payer MEDICAID | END 2021-12-06 10:03 | disposition home or self-care (01) | LOC: LAB 10:02 | PROVIDERS: ATTEND Physician Assistant | DX: Z01.812 Encounter for preprocedural laboratory examination (principal); Z20.822 Contact with and (suspected) exposure to COVID-19 ==

== ENCOUNTER 2022-02-08 13:52 | Outpatient (CLI) | payer MEDICAID ==
--- NOTE | 2022-02-09 11:10 | Mammography Report ---
BILATERAL DIGITAL SCREENING MAMMOGRAM 3D/2D: 02/08/2022 CLINICAL: Routine screening. Comparison is made to exams dated: 12/01/2020 mammogram, 11/26/2019 mammogram, 10/01/2018 mammogram, 08/14/2017 mammogram, and 08/14/2017 mammogram - [facility]. Both breasts are extremely dense, which lowers the sensitivity of mammography (category d />75% glan dular tissue). There is a new 0.7 cm oval equal density focal asymmetry in the left breast at 8 o'clock middle depth . No other significant masses, calcifications, or other findings are seen in either breast. IMPRESSION: INCOMPLETE: NEEDS ADDITIONAL IMAGING EVALUATION The new 0.7 cm oval equal density focal asymmetry in the left breast is indeterminate. Additional vi ews with possible ultrasound are recommended. Based on Tyrer-Cuzick model (a risk assessment model), the patient's lifetime risk is 31.0% and her 1 0 year risk is 5.9%. If a patient has an elevated risk, a more comprehensive evaluation should be con sidered and/or a referral to a genetic counselor. The [place] [employer], [employer], and NCCN Guidelines advise the consideration of Breast MRI as an adjunct to screening mammog eric in patients whose "Lifetime risk to develop breast cancer" is 20% or higher. This exam was interpreted at Station ID: [id number]. NOTE: For mammograms, a report in lay terms will be sent to the patient. Approximately 15% of breast malignancies will not be visualized mammographically. In the management of a palpable breast mass, a negative mammogram must not discourage biopsy of a clinically suspicious lesion. Electronically Signed By: Hill Bermudez M.D. aty/:02/08/2022 17:23:22 ACR BI-RADS Category 0: Incomplete 3340F PARENCHYMAL PATTERN: (VD) - The breast(s) demonstrate(s) extremely dense parenchyma, limiting the sen sitivity of mammography. BI-RADS CATEGORY: (0) - 0 Mammo and US [id number] Immediate follow-up LATERALITY: (L)
== END 2022-02-08 13:53 | disposition home or self-care (01) ==
LOC: DI 13:52
DX: Z12.31 Encounter for screening mammogram for malignant neoplasm of breast (principal); R92.8 Other abnormal and inconclusive findings on diagnostic imaging of breast

== ENCOUNTER 2022-07-28 10:52 | Outpatient (CLI) | payer MEDICAID ==
[2022-07-28 11:31] LABS: ALBUMIN/GLOBULIN RATIO 1.3 (1.0-2.2); ALKALINE PHOSPHATASE 108 IU/L (42-121); ALT ALANINE AMINOTRANSFERASE 53 IU/L (10-60); AST ASPARTATE AMINOTRANSFERASE 141 IU/L (10-42); BILIRUBIN,TOTAL 1.2 mg/dL (0.2-1.0); BUN - BLOOD UREA NITROGEN 8 mg/dL (6-20); CALCIUM 9.7 mg/dL (8.5-10.3); CARBON DIOXIDE - CO2 25 mmol/L (21-32); CHLORIDE 99 mmol/L (101-111); CREATININE 0.8 mg/dL (0.4-1.0); CRP - C-REACTIVE PROTEIN < 1.0 mg/dL (0-1.0); GFR - MDRD 78 (>89); GLUCOSE 113 mg/dL (70-100); POTASSIUM 3.6 mmol/L (3.5-5.0); SODIUM 137 mmol/L (135-145); TOTAL PROTEIN 7.2 g/dL (6.7-8.2)
[2022-07-28 14:38] LABS: MAGNESIUM 1.9 mg/dL (1.7-2.8)
[2022-07-29 11:11] LABS: MEASLES ANTIBODIES IGG 28.3 AU/mL (Immune >16.4)
== END 2022-07-28 10:53 | disposition home or self-care (01) ==
LOC: LAB 10:52
PROVIDERS: ATTEND Nurse Practitioner
DX: Z02.89 Encounter for other administrative examinations (principal); R11.2 Nausea with vomiting, unspecified; M25.50 Pain in unspecified joint
CPT/HCPCS: 36415; 80053; 83735; 85651; 86140; 86735; 86762; 86765; 86787

== ENCOUNTER 2022-11-04 12:55 | Outpatient (CLI) | payer MEDICAID ==
--- NOTE | 2022-11-08 08:43 | Ultrasound Report ---
LIMITED ULTRASOUND OF LEFT BREAST: 11/04/2022 CLINICAL: Short term follow up for the left breast. Comparison is made to exams dated: 11/04/2022 mammogram, 02/24/2022 ultrasound, 02/24/2022 mammogram, mammogram, and 12/01/2020 mammogram - [facility]. Color flow ultrasound of the left breast 9 o'clock region was performed. Soto scale images of the r eal-time examination were reviewed. No significant abnormalities were seen sonographically in the left breast. Previously described left breast hypoechoic mass measuring 0.6 x 0.3 x 0.3 cm is not identified on today's evaluation. IMPRESSION: PROBABLY BENIGN There is no abnormality seen in the left breast to correspond with the mammography finding which has decreased in size and prominence. A follow-up left mammogram and an ultrasound in 6 months is recommended to demonstrate stability. Findings and recommendations were conveyed to the patient during today's evaluation. This exam was interpreted at Station ID: [id number]. Electronically Signed By: Hill Bermudez M.D. aty/:11/04/2022 15:08:28 Ultrasound BI-RADS: 3 Probably benign BI-RADS CATEGORY: (3) - 3 Mammo and US [id number] 6 month follow-up LATERALITY: (L)
--- NOTE | 2022-11-08 08:43 | Mammography Report ---
UNILATERAL LEFT DIGITAL DIAGNOSTIC MAMMOGRAM 3D/2D: 11/04/2022 CLINICAL: Patient returns for a 6 month follow up of the left breast. Comparison is made to exams dated: 02/24/2022 mammogram, 02/08/2022 mammogram, 12/01/2020 mammogram, mammogram, 10/01/2018 mammogram, and 08/14/2017 mammogram - [facility]. The left breast is extremely dense, which lowers the sensitivity of mammography (category d />75% gla ndular tissue). The previously described oval equal density focal asymmetry in the left breast at 9 o'clock middle de pth is not confirmed in additional views and appears less prominent and decreased in size. No other significant masses or calcifications are seen in the breast. IMPRESSION: INCOMPLETE: NEEDS ADDITIONAL IMAGING EVALUATION The oval equal density focal asymmetry in the left breast appears less prominent and remains indeterm inate. An ultrasound is recommended for further evaluation and is scheduled to immediately follow thi s examination. Based on Tyrer-Cuzick model (a risk assessment model), the patient's lifetime risk is 31.0% and her 1 0 year risk is 6.3%. If a patient has an elevated risk, a more comprehensive evaluation should be con sidered and/or a referral to a genetic counselor. The [place] [employer], [employer], and NCCN Guidelines advise the consideration of Breast MRI as an adjunct to screening mammog eric in patients whose "Lifetime risk to develop breast cancer" is 20% or higher. This exam was interpreted at Station ID: [id number]. NOTE: For mammograms, a report in lay terms will be sent to the patient. Approximately 15% of breast malignancies will not be visualized mammographically. In the management of a palpable breast mass, a negative mammogram must not discourage biopsy of a clinically suspicious lesion. Electronically Signed By: Hill Bermudez M.D. aty/:11/04/2022 15:04:46 ACR BI-RADS Category 0: Incomplete 3340F PARENCHYMAL PATTERN: (VD) - The breast(s) demonstrate(s) extremely dense parenchyma, limiting the sen sitivity of mammography. BI-RADS CATEGORY: (0) - 0 Ultrasound [id number] Immediate follow-up LATERALITY: (L)
== END 2022-11-04 12:56 | disposition home or self-care (01) ==
LOC: DI 12:55
PROVIDERS: ATTEND Nurse Practitioner
DX: R92.8 Other abnormal and inconclusive findings on diagnostic imaging of breast (principal)

== ENCOUNTER 2022-12-18 17:02 | Emergency (ER) | payer MEDICAID ==
[2022-12-18 17:34] VITALS: BP 134/90
--- NOTE | 2022-12-18 18:32 | ED Physician Documentation ---
History of Present Illness - Stated complaint Stated Complaint: LT SD PX,BROKEN SHOULDER - Chief complaint Chief Complaint: General - History obtained from History obtained from: Patient - Additonal information Additional information: She was in [place] 8 days ago and had an injection injury from a golf cart. She was thoroughly imaged and had x-rays of the shoulder on the left, lumbar spine, right knee, right foot and others. Complaints today include the fact that she really needs the referral to get to orthopedics, needs more pain medication, would like a boot and a spare sling. PD PAST MEDICAL HISTORY - Past Medical History Cardiovascular: None Respiratory: None Endocrine/Autoimmune: None GI: None [employer] BED: None HEENT: None Psych: None Musculoskeletal: Chronic back pain Derm: None - Past Surgical History Past Surgical History: No General: Colonoscopy, Other - Present Medications Home Medications: Ambulatory Orders Medication Instructions Recorded Confirmed Metoclopramide [Reglan] 10 mg PO Q6H PRN #15 tablet 08/03/15 12/27/19 Fluticasone [Flonase] 1 spray BRIT DAILY 12/26/19 12/27/19 Gabapentin 1 tab PO BID 12/26/19 12/27/19 Magnesium 2 tab PO DAILY 12/26/19 12/27/19 Tizanidine HCl 1 tab PO ONCE PRN 12/26/19 12/27/19 Topiramate [Topamax] 1 tab PO BID 12/26/19 12/27/19 diphenhydrAMINE [Benadryl] 25 mg PO PRN PRN 12/26/19 12/27/19 Levonorgestrel 20 Mcg/24H [Mirena] 1 each IY DAILY 12/27/19 12/27/19 Omeprazole Magnesium [Prilosec] 2.5 mg PO PRN PRN 12/27/19 12/27/19 ondansetron HCL [Zofran] 4 mg PO PRN PRN 12/27/19 12/27/19 Acetaminophen [Acetaminophen Extra 500 mg PO QID PRN 15 Days #60 05/31/21 Strength] tablet Docusate Sodium 100Mg Capsule 100 mg PO DAILY #20 cap 05/31/21 [Colace 100Mg Capsule] Meloxicam [Mobic] 7.5 mg PO BID 15 Days #30 tablet 05/31/21 Ondansetron Odt [Zofran] 4 mg TL Q6H PRN #20 tablet 05/31/21 oxyCODONE [Roxicodone] 5 mg PO Q6H PRN #20 tablet 05/31/21 Oxycodone HCl/Acetaminophen 1 - 2 each PO Q6H PRN #14 tablet 12/18/22 [Percocet 5-325 mg Tablet] - Allergies Allergies/Adverse Reactions: Allergies Allergy/AdvReac Type Severity Reaction Status Date / Time erythromycin base Allergy Anaphylaxis Verified 05/31/21 14:54 prednisone Allergy Edema Verified 05/31/21 14:54 shellfish derived Allergy Nausea Verified 05/31/21 14:54 sumatriptan [From Imitrex] Allergy Edema Verified 05/31/21 14:54 sumatriptan succinate * Allergy Edema Verified 05/31/21 14:54 [From Imitrex] - Social History Does the pt smoke?: No Smoking Status: Never smoker Does the pt drink ETOH?: Yes Does the pt have substance abuse?: No - Immunizations Immunizations are current?: Yes Immunizations: TDAP >10years/unknown - POLST Patient has POLST: No PD ED PE NORMAL - Vitals Vital signs reviewed: Yes - General General: Alert and oriented X 3, No acute distress - HEENT HEENT: PERRL, EOMI - Neck Neck: Supple, no meningeal sign, No bony TTP - Extremities Extremities: Other (Left shoulder and reverse sugar-tong splints. Normal neurovascular function in the left hand. Ecchymotic right foot without focal bony tenderness. Ecchymosis medial right knee without limited range of motion or tenderness.) - Neuro Neuro: Alert and oriented X 3, Normal speech Results - Vitals Vitals: Vital Signs - 24 hr 12/18/22 17:24 Temperature 36.6 C Heart Rate 63 Respiratory 20 Rate Blood Pressure 134/90 H O2 Saturation 96 Oxygen O2 Source Room air PD Medical Decision Making - ED course ED course: She is already had thorough imaging, we placed her in a boot per her request and gave her second sling and I emailed both Antonietta Lamb and Tai Smith regarding the need for orthopedic referral. Departure - Departure Disposition: 01 Home, Self Care Clinical Impression: Proximal humerus fracture Qualifiers: Encounter type: initial encounter Fracture type: closed Fracture morphology: other fracture Fracture alignment: displaced Laterality: left Qualified Code(s): S42.292A - Other displaced fracture of upper end of left humerus, initial encounter for closed fracture Condition: Good Record reviewed to determine appropriate education?: Yes Instructions: ED Fx Shoulder Follow-Up: Orthopedic Care [Provider Group] Prescriptions: Oxycodone HCl/Acetaminophen [Percocet 5-325 mg Tablet] 1 - 2 each PO Q6H PRN #14 tablet PRN Reason: pain Comments: I emailed both Antonietta Lamb and Tai Smith regarding the need for referral for the proximal humerus fracture. I sent the prescription electronically to the [facility] pharmacy here in [place]. You can also call the orthopedics office tomorrow to see if they can be helpful. I am prescribing a short course of narcotic pain medication for you. These are potentially dangerous and addictive medications that should be used carefully. These medications may constipate you. Take an dhev-nhg-unbnklq stool softener (docusate) twice daily with plenty of water while taking these medications. If you go 24 hours without a bowel movement, take ouvj-qip-qzoezfo miralax, per package instructions. Do not drink or drive while taking these medications. If you received narcotic or sedating medications while in the emergency department, do not drive for 24 hours. Store this medication in a safe, secure place and out of reach of children. It is a violation of federal law to give or sell this medication to another person or to use in a manner other than prescribed. The ED will not refill narcotic prescriptions, including prescriptions lost or stolen. To dispose of unwanted medications: 1. [facility] provides a drop box for medication in pill form only (no liquids) 8:00 am to 4:30 p.m. Monday-Monday in the lobby of the [facility], [address] [place] [address]. Empty pills into ziplock bag before disposal. Call [phone] for information. 2.[employer] is a free service available to all [facility] residents. Go to [email or web address] Note that many narcotic pain relievers also contain Tylenol/acetaminophen. Please ensure that your total dose of acetaminophen from all sources does not exceed 3 g (3000 mg) per day.
[2022-12-18] MEDS ORDERED: oxyCODONE/ACET 5/325 Prepack 4 PO STA (18:42)
== END 2022-12-18 19:05 | disposition home or self-care (01) ==
LOC: ED 17:02
DX: S42.292A Other displaced fracture of upper end of left humerus, initial encounter for closed fracture (principal); X58.XXXA Exposure to other specified factors, initial encounter
CPT/HCPCS: 99282; 99283

== ENCOUNTER 2022-12-20 08:00 | Outpatient (CLI) | payer MEDICAID ==
--- NOTE | 2022-12-20 21:57 | XRAY Report ---
PROCEDURE: Foot 3 View RT INDICATIONS: RIGHT FOOT PAIN/INJURY TECHNIQUE: 3 views of the foot were acquired. COMPARISON: None. FINDINGS: Bones: First metatarsal base fracture. No dislocations. No suspicious bony lesions. Soft tissues: No suspicious soft tissue calcifications or masses. IMPRESSION: First metatarsal base fracture. Reviewed by: Diego Le MD on 12/20/2022 9:56 PM PDT Approved by: Diego Le MD on 12/20/2022 9:56 PM PDT Station ID: [id number]
--- NOTE | 2022-12-20 21:58 | XRAY Report ---
PROCEDURE: Knee 4 View RT INDICATIONS: RIGHT KNEE PAIN/INJURY TECHNIQUE: 4 views of the right knee(s) were acquired. COMPARISON: None. FINDINGS: Bones: No fractures or dislocations. No suspicious bony lesions. Soft tissues: No knee joint effusion. No suspicious soft tissue calcifications or masses. IMPRESSION: No fracture or dislocation. Reviewed by: Diego Le MD on 12/20/2022 9:57 PM PDT Approved by: Diego Le MD on 12/20/2022 9:57 PM PDT Station ID: [id number]
--- NOTE | 2022-12-20 22:00 | XRAY Report ---
PROCEDURE: Shoulder 3 View LT INDICATIONS: LEFT SHOULDER FRACTURE TECHNIQUE: 5 views of the shoulder were acquired. COMPARISON: None. FINDINGS: Bones: Comminuted left humeral head fracture. Mild displacement. No dislocations. No widening of the AC joint. No suspicious bony lesions. Visualized ribs appear intact. Soft tissues: No suspicious soft tissue calcifications. IMPRESSION: Comminuted left humeral head fracture. Mild displacement. Reviewed by: Diego Le MD on 12/20/2022 9:58 PM PDT Approved by: Diego Le MD on 12/20/2022 9:58 PM PDT Station ID: [id number]
== END 2022-12-20 23:59 | disposition home or self-care (01) ==
LOC: DI.WOS 08:00
PROVIDERS: ATTEND Orthopaedic Surgery Sports Medicine
DX: M25.561 Pain in right knee (principal); S42.292A Other displaced fracture of upper end of left humerus, initial encounter for closed fracture; S92.311A Displaced fracture of first metatarsal bone, right foot, initial encounter for closed fracture

== ENCOUNTER 2023-01-10 08:00 | Outpatient (CLI) | payer MEDICAID ==
--- NOTE | 2023-01-10 15:46 | XRAY Report ---
PROCEDURE: Shoulder 3 View LT INDICATIONS: LEFT SHOULDER FRACTURE TECHNIQUE: 3 views of the shoulder were acquired. COMPARISON: X-ray shoulder 12/20/2022 FINDINGS: Bones: Stable alignment with mild interval healing of previously identified humeral head/neck fractu re. There remains mild inferior subluxation of the glenohumeral joint space without change.. No susp icious bony lesions. Visualized ribs appear intact. Soft tissues: No suspicious soft tissue calcifications. IMPRESSION: Stable alignment and mild interval healing of previous humeral neck/head fracture. Reviewed by: Miladis De La Cruz MD on 01/10/2023 3:45 PM PDT Approved by: Miladis De La Cruz MD on 01/10/2023 3:45 PM PDT Station ID: [id number]
--- NOTE | 2023-01-10 16:59 | XRAY Report ---
PROCEDURE: Foot 3 View RT INDICATIONS: RIGHT 1ST MT FRACTURE TECHNIQUE: 3 weightbearing views of the foot were acquired. COMPARISON: 12/20/2022. FINDINGS: Bones: Healing mildly displaced base of right first metatarsal fracture with increased bridging call us formation and periosteal reaction. Alignment is stable. Mild diffuse osteopenia likely related to disuse. Borderline pes planus. Soft tissues: No suspicious soft tissue calcifications or masses. IMPRESSION: Healing base of right first metatarsal fracture in stable alignment. Reviewed by: Hill Bermudez MD on 01/10/2023 4:57 PM PDT Approved by: Hill Bermudez MD on 01/10/2023 4:57 PM PDT Station ID: [id number]
== END 2023-01-10 23:59 | disposition home or self-care (01) ==
LOC: DI.WOS 08:00
PROVIDERS: ATTEND Orthopaedic Surgery
DX: S42.292D Other displaced fracture of upper end of left humerus, subsequent encounter for fracture with routine healing (principal); S92.311D Displaced fracture of first metatarsal bone, right foot, subsequent encounter for fracture with routine healing

== ENCOUNTER 2023-02-09 14:06 | Outpatient (CLI) | payer MEDICAID ==
--- NOTE | 2023-02-09 16:05 | MRI Report ---
PROCEDURE: LUMBAR SPINE WO INDICATIONS: LUMBAR DISC HERNIATION TECHNIQUE: Noncontrast sagittal T1 spin echo and T2 fast echo, sagittal STIR, axial T1 and T2 fast spin echo thr ough the lumbar spine. In cases with scoliosis, additional coronal T2 fast spin echo may be performe d. COMPARISON: MRI lumbar spine 07/08/2021. FINDINGS: Image quality: Excellent. Alignment and Curvature: There is normal bony alignment. Bone Marrow: Marrow is of normal overall signal. No acute vertebral body compression fractures. Spinal Cord: Conus medullaris terminates at the L1 level. Visualized cord demonstrates normal signa l and size. Paraspinous Soft Tissues: No paravertebral masses. T12-L1: Small left paracentral disc protrusion. No central canal or neuroforaminal stenosis. L1-L2: No central canal or neuroforaminal stenosis. L2-L3: No central canal or neuroforaminal stenosis. L3-L4: No central canal or neuroforaminal stenosis. L4-L5: Disc desiccation with a posterior disc bulge and a superimposed broad-based posterior disc p rotrusion indenting the thecal sac. No significant central canal or neuroforaminal stenosis. This is stable compared to prior. L5-S1: Disc desiccation and height loss with a posterior disc bulge and superimposed right paracent ral disc protrusion which is decreased compared to prior. Narrowing of the right lateral recess with possible impingement of the descending right S1 nerve root. Mild right neuroforaminal stenosis. No le ft neuroforaminal stenosis. No central canal stenosis. IMPRESSION: Redemonstration of degenerative changes at L4-L5 and L5-S1. Similar appearance of right paracentral d isc protrusion at L5-S1 resulting in possible impingement of the descending right S1 nerve root. Over all, findings are not significantly changed compared to prior exam. Reviewed by: Joe Hamilton MD on 02/09/2023 4:03 PM PDT Approved by: Joe Hamilton MD on 02/09/2023 4:03 PM PDT Station ID: [id number]
== END 2023-02-09 14:07 | disposition home or self-care (01) ==
LOC: DI 14:06
PROVIDERS: ATTEND Orthopaedic Surgery
DX: M47.816 Spondylosis without myelopathy or radiculopathy, lumbar region (principal); M47.817 Spondylosis without myelopathy or radiculopathy, lumbosacral region; M51.27 Other intervertebral disc displacement, lumbosacral region

== ENCOUNTER 2023-02-16 08:00 | Outpatient (CLI) | payer MEDICAID ==
--- NOTE | 2023-02-16 11:47 | XRAY Report ---
PROCEDURE: Foot 3 View RT INDICATIONS: RIGHT FOOT FX TECHNIQUE: 3 views of the foot were acquired. COMPARISON: 01/10/2023 FINDINGS: Bones: Remodeling, bridging callus and periosteal buttressing noted at the base of the first metatar brandy. Soft tissues: No suspicious soft tissue calcifications or masses. IMPRESSION: Healing fracture, first metatarsal base Reviewed by: Demarco Winters MD on 02/16/2023 10:45 AM AKDT Approved by: Demarco Winters MD on 02/16/2023 10:45 AM AKDT Station ID: [id number]
--- NOTE | 2023-02-16 11:54 | XRAY Report ---
PROCEDURE: Shoulder 3 View LT INDICATIONS: LEFT SHOULDER FX TECHNIQUE: 4 views of the shoulder were acquired. COMPARISON: 01/10/2023 FINDINGS: Bones: Healing comminuted fracture the proximal left humerus shows bridging callus and remodeling Soft tissues: No suspicious soft tissue calcifications. The visualized lungs are within normal limi ts. IMPRESSION: Healing proximal humeral fracture Reviewed by: Demarco Winters MD on 02/16/2023 10:53 AM KENDRA Approved by: Demarco Winters MD on 02/16/2023 10:53 AM AKARMAND Station ID: [id number]
== END 2023-02-16 23:59 | disposition home or self-care (01) ==
LOC: DI.WOS 08:00
PROVIDERS: ATTEND Orthopaedic Surgery
DX: S92.31 Fracture of first metatarsal bone (principal); S42.355D Nondisplaced comminuted fracture of shaft of humerus, left arm, subsequent encounter for fracture with routine healing

== ENCOUNTER 2023-04-14 14:11 | Outpatient (CLI) | payer MEDICAID ==
[2023-04-14 14:35] LABS: HCT - HEMATOCRIT 55.6 % (37.0-47.0); HGB - HEMOGLOBIN 19.3 g/dL (12.0-16.0); MEAN CORPUSCULAR HEMOGLOBIN 34.2 pg (27.0-31.0); MEAN CORPUSCULAR HGB CONC 34.7 g/dL (32.0-36.0); MEAN CORPUSCULAR VOLUME 98.4 fL (81.0-99.0); MEAN PLATELET VOLUME 9.6 fL (7.9-10.8); RED BLOOD COUNT 5.65 10^6/uL (4.20-5.40); RED CELL DISTRIBUTION WIDTH 14.7 % (12.0-15.0)
== END 2023-04-14 14:12 | disposition home or self-care (01) ==
LOC: LAB 14:11
PROVIDERS: ATTEND Orthopaedic Surgery
DX: Z01.818 Encounter for other preprocedural examination (principal)
CPT/HCPCS: 36415; 85027

== ENCOUNTER 2023-04-29 12:03 | Outpatient (CLI) | payer MEDICAID ==
[2023-04-29 12:26] LABS: BASOPHILS # (AUTO) 0.1 10^3/uL (0.0-0.1); BASOPHILS % (AUTO) 0.6 %; EOSINOPHILS # (AUTO) 0.3 10^3/uL (0.0-0.7); EOSINOPHILS % (AUTO) 3.2 %; HCT - HEMATOCRIT 51.1 % (37.0-47.0); HGB - HEMOGLOBIN 17.6 g/dL (12.0-16.0); LYMPHOCYTES # (AUTO) 2.6 10^3/uL (1.5-3.5); LYMPHOCYTES % (AUTO) 32.3 %; MEAN CORPUSCULAR HEMOGLOBIN 33.7 pg (27.0-31.0); MEAN CORPUSCULAR HGB CONC 34.4 g/dL (32.0-36.0); MEAN CORPUSCULAR VOLUME 97.9 fL (81.0-99.0); MONOCYTES # (AUTO) 0.6 10^3/uL (0.0-1.0); NEUTROPHILS # (AUTO) 4.6 10^3/uL (1.5-6.6); NEUTROPHILS % (AUTO) 56.8 %; PLT - PLATELET COUNT 251 10^3/uL (130-450); RED BLOOD COUNT 5.22 10^6/uL (4.20-5.40); WHITE BLOOD COUNT 8.1 x10^3/uL (4.8-10.8)
[2023-04-29 12:39] LABS: ALBUMIN 3.5 g/dL (3.2-5.5)
[2023-04-29 12:52] LABS: THYROID STIMULATING HORMONE 1.35 uIU/mL (0.34-5.60)
[2023-04-29 12:53] LABS: ALBUMIN/GLOBULIN RATIO 1.5 (1.0-2.2); BILIRUBIN,TOTAL 0.9 mg/dL (0.2-1.0); CALCIUM 10.6 mg/dL (8.5-10.3); CREATININE 0.7 mg/dL (0.6-1.3); POTASSIUM 2.5 mmol/L (3.5-4.5); TOTAL PROTEIN 5.9 g/dL (6.4-8.9)
== END 2023-04-29 12:04 | disposition home or self-care (01) ==
LOC: LAB 12:03
PROVIDERS: ATTEND Nurse Practitioner
DX: G62.9 Polyneuropathy, unspecified (principal); F32.A Depression, unspecified; R11.10 Vomiting, unspecified
CPT/HCPCS: 36415; 80053; 82607; 84443; 85025

== ENCOUNTER 2023-04-29 13:58 | Emergency (ER) | payer MEDICAID ==
[2023-04-29] MEDS ORDERED: POTASSIUM CHLORIDE 20 MEQ TABLET PO STA ×2 (15:13→16:36)
[2023-04-29] MEDS ORDERED: ONDANSETRON ODT 4 MG TABLET TL STA (15:19)
--- NOTE | 2023-04-29 15:21 | ED Physician Documentation ---
History of Present Illness - Stated complaint Stated Complaint: LOW POTASSIUM - Chief complaint Chief Complaint: General - Additonal information Additional information: This is a 47-year-old female who presents after preoperative labs today showed low potassium. The patient was having preop labs for an upcoming back surgery but she also recently underwent a colonoscopy and endoscopy and had been on bowel prep for the last several days and states she cannot eat a substantial amount at a time therefore her appetite has not recovered from her bowel prep and endoscopy.She has a history of cyclic vomiting for unclear reasons at this the endoscopy. She is on as needed Zofran or promethazine at home. She denies any diuretics, no new medication changes. She is asymptomatic at this time. 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 HEENT: None Psych: None Musculoskeletal: Chronic back pain Derm: None - Past Surgical History Past Surgical History: No General: Colonoscopy, Other - Present Medications Home Medications: Ambulatory Orders Medication Instructions Recorded Confirmed Metoclopramide [Reglan] 10 mg PO Q6H PRN #15 tablet 08/03/15 04/29/23 Fluticasone [Flonase] 1 spray BRIT DAILY 12/26/19 04/29/23 Gabapentin 1 tab PO BID 12/26/19 04/29/23 Magnesium 2 tab PO DAILY 12/26/19 04/29/23 Tizanidine HCl 1 tab PO ONCE PRN 12/26/19 04/29/23 Topiramate [Topamax] 1 tab PO BID 12/26/19 04/29/23 diphenhydrAMINE [Benadryl] 25 mg PO PRN PRN 12/26/19 04/29/23 Levonorgestrel 20 Mcg/24H [Mirena] 1 each IY DAILY 12/27/19 04/29/23 Omeprazole Magnesium [Prilosec] 2.5 mg PO PRN PRN 12/27/19 04/29/23 ondansetron HCL [Zofran] 4 mg PO PRN PRN 12/27/19 04/29/23 Acetaminophen [Acetaminophen Extra 500 mg PO QID PRN 15 Days #60 05/31/21 04/29/23 Strength] tablet Docusate Sodium 100Mg Capsule 100 mg PO DAILY #20 cap 05/31/21 04/29/23 [Colace 100Mg Capsule] Meloxicam [Mobic] 7.5 mg PO BID 15 Days #30 tablet 05/31/21 04/29/23 Ondansetron Odt [Zofran] 4 mg TL Q6H PRN #20 tablet 05/31/21 04/29/23 oxyCODONE [Roxicodone] 5 mg PO Q6H PRN #20 tablet 05/31/21 04/29/23 Oxycodone HCl/Acetaminophen 1 - 2 each PO Q6H PRN #14 tablet 12/18/22 04/29/23 [Percocet 5-325 mg Tablet] Potassium Chloride 20 meq PO BID #14 tab 04/29/23 - Allergies Allergies/Adverse Reactions: Allergies Allergy/AdvReac Type Severity Reaction Status Date / Time erythromycin base Allergy Anaphylaxis Verified 04/29/23 14:33 prednisone Allergy Edema Verified 04/29/23 14:33 shellfish derived Allergy Nausea Verified 04/29/23 14:33 sumatriptan [From Imitrex] Allergy Edema Verified 04/29/23 14:33 sumatriptan succinate * Allergy Edema Verified 04/29/23 14:33 [From Imitrex] - Social History Does the pt smoke?: No Smoking Status: Never smoker Does the pt drink ETOH?: Yes Does the pt have substance abuse?: No - Immunizations Immunizations are current?: Yes Immunizations: TDAP >10years/unknown - POLST Patient has POLST: No PD ED PE NORMAL - Vitals Vital signs reviewed: Yes - General General: Alert and oriented X 3, No acute distress, Well developed/nourished - Cardiac Cardiac: RRR, No murmur - Respiratory Respiratory: No respiratory distress, Clear bilaterally - Abdomen Abdomen: Normal bowel sounds, Soft, Non tender, Non distended - Derm Derm: Normal color, Warm and dry, No rash - Neuro Neuro: Alert and oriented X 3 Eye Opening: Spontaneous Motor: Obeys Commands Verbal: Oriented GCS Score: 15 - Psych Psych: Normal mood, Normal affect Results - Vitals Vitals: Vital Signs - 24 hr 04/29/23 14:33 Temperature 36.5 C Heart Rate 69 Respiratory 16 Rate Blood Pressure 132/95 H O2 Saturation 97 Oxygen O2 Source Room air - Labs Labs: Laboratory Tests 11/18/23 15:23 Potassium 2.9 L PD Medical Decision Making - ED course Complexity details: reviewed results, re-evaluated patient, considered differential, d/w patient ED course: 47-year-old female presents from the clinic after clinic lab revealed a potassium of 2.5. The remainder of her CBC and CMP were reviewed and unrevealing. She did a bowel prep this past week for endoscopy and colonoscopy and I suspect that this is a cause of her low potassium. She is now able to tolerate oral medication therefore we will start with oral potassium, she tolerated a total of 60meq orally here. EKG shows sinus jann, no st changes. Anticipate improvement once patient is eating and drinking more now that she is no longer doing the bowel prep. Discharge w/ 7 days of potassium supplementation. Departure - Departure Disposition: 01 Home, Self Care Clinical Impression: Hypokalemia due to excessive gastrointestinal loss of potassium Condition: Good Instructions: Hypokalemia Dc, ED Diet High Potassium Prescriptions: Potassium Chloride 20 meq PO BID #14 tab Comments: You have low potassium, likely due to your recent GI losses from the bowel prep and cyclic vomiting. Your potassium now is 2.9, which is still low but we can treat with oral tablets. Please try to incorporate potassium into your diet as well (potatoes, bananas, etc). You may need to have your potassium rechecked prior to your back surgery. Forms: PCP List
[2023-04-29 17:11] VITALS: BP 141/92; O2SAT 97
== END 2023-04-29 17:03 | disposition home or self-care (01) ==
LOC: ED 13:58
DX: E87.6 Hypokalemia (principal); Z79.899 Other long term (current) drug therapy
CPT/HCPCS: 36415; 84132; 93005; 99284; A9270; Q0162

== ENCOUNTER 2023-05-16 14:59 | Outpatient (CLI) | payer MEDICAID ==
[2023-05-16 15:10] LABS: BASOPHILS # (AUTO) 0.1 10^3/uL (0.0-0.1); BASOPHILS % (AUTO) 0.8 %; EOSINOPHILS # (AUTO) 0.9 10^3/uL (0.0-0.7); EOSINOPHILS % (AUTO) 8.9 %; HCT - HEMATOCRIT 50.4 % (37.0-47.0); HGB - HEMOGLOBIN 16.7 g/dL (12.0-16.0); LYMPHOCYTES # (AUTO) 3.4 10^3/uL (1.5-3.5); LYMPHOCYTES % (AUTO) 33.6 %; MEAN CORPUSCULAR HEMOGLOBIN 33.5 pg (27.0-31.0); MEAN CORPUSCULAR HGB CONC 33.1 g/dL (32.0-36.0); MEAN PLATELET VOLUME 9.1 fL (7.9-10.8); MONOCYTES # (AUTO) 0.8 10^3/uL (0.0-1.0); MONOCYTES % (AUTO) 7.9 %; NEUTROPHILS # (AUTO) 4.9 10^3/uL (1.5-6.6); NEUTROPHILS % (AUTO) 48.6 %; PLT - PLATELET COUNT 249 10^3/uL (130-450); RED BLOOD COUNT 4.99 10^6/uL (4.20-5.40); RED CELL DISTRIBUTION WIDTH 14.4 % (12.0-15.0)
[2023-05-16 15:25] LABS: ALBUMIN 4.1 g/dL (3.2-5.5); ALBUMIN/GLOBULIN RATIO 1.7 (1.0-2.2); BILIRUBIN,TOTAL 0.8 mg/dL (0.2-1.0); CREATININE 0.7 mg/dL (0.6-1.3); POTASSIUM 3.8 mmol/L (3.5-4.5); TOTAL PROTEIN 6.5 g/dL (6.4-8.9)
== END 2023-05-16 15:00 | disposition home or self-care (01) ==
LOC: LAB 14:59
PROVIDERS: ATTEND Nurse Practitioner
DX: R11.2 Nausea with vomiting, unspecified (principal)
CPT/HCPCS: 36415; 80053; 85025

== ENCOUNTER 2023-06-04 15:35 | Emergency (ER) | payer MEDICAID ==
[2023-06-04 16:01] VITALS: BP 144/92; O2SAT 100
--- NOTE | 2023-06-04 16:47 | XRAY Report ---
PROCEDURE: Foot 3+V LT INDICATIONS: Trauma TECHNIQUE: 3 views of the foot were acquired. COMPARISON: Correlation is made with the accompanying ankle plain films. FINDINGS: Bones: No fractures or dislocations. No suspicious bony lesions. Soft tissues: No suspicious soft tissue calcifications or masses. IMPRESSION: No acute bony abnormality. Reviewed by: Mook Kingston MD on 06/04/2023 3:46 PM [facility] Approved by: Mook Kingston MD on 06/04/2023 3:46 PM [facility] Station ID: [id number]
--- NOTE | 2023-06-04 16:48 | XRAY Report ---
PROCEDURE: Ankle 3+V LT INDICATIONS: Trauma TECHNIQUE: 3 views of the ankle were acquired. COMPARISON: Correlation is made with the accompanying foot plain films. FINDINGS: Bones: No fractures or dislocations. Ankle mortise is normally aligned. No suspicious bony lesions . The talar dome demonstrates an unremarkable appearance. Soft tissues: Soft tissue swelling is seen laterally. IMPRESSION: Soft tissue swelling is seen. No findings of fracture are seen. However, if there is point tenderness (or other clinical concern fo r a fracture not seen on these plain films) then please consider a short-term follow-up plain film se teodoro or CT for further evaluation. Reviewed by: Mook Kingston MD on 06/04/2023 3:46 PM [facility] Approved by: Mook Kingston MD on 06/04/2023 3:46 PM [facility] Station ID: [id number]
--- NOTE | 2023-06-04 17:55 | ED Physician Documentation ---
History of Present Illness - Stated complaint Stated Complaint: LT FOOT INJ - Chief complaint Chief Complaint: Trauma Ext - Additonal information Additional information: Patient 48-year-old female presents with left ankle injury. Tripped while putting her shoes on at home. Denies previous injuries to the same ankle.Reports history of chronic back pain which has limited her mobility however reports that she primarily experiences pain and weakness with her right leg. States that at baseline she does need to use a cane. 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 HEENT: None Psych: None Musculoskeletal: Chronic back pain Derm: None - Past Surgical History Past Surgical History: No General: Colonoscopy, Other - Present Medications Home Medications: Ambulatory Orders Medication Instructions Recorded Confirmed Metoclopramide [Reglan] 10 mg PO Q6H PRN #15 tablet 08/03/15 04/29/23 Fluticasone [Flonase] 1 spray BRIT DAILY 12/26/19 04/29/23 Gabapentin 1 tab PO BID 12/26/19 04/29/23 Magnesium 2 tab PO DAILY 12/26/19 04/29/23 Tizanidine HCl 1 tab PO ONCE PRN 12/26/19 04/29/23 Topiramate [Topamax] 1 tab PO BID 12/26/19 04/29/23 diphenhydrAMINE [Benadryl] 25 mg PO PRN PRN 12/26/19 04/29/23 Levonorgestrel 20 Mcg/24H [Mirena] 1 each IY DAILY 12/27/19 04/29/23 Omeprazole Magnesium [Prilosec] 2.5 mg PO PRN PRN 12/27/19 04/29/23 ondansetron HCL [Zofran] 4 mg PO PRN PRN 12/27/19 04/29/23 Acetaminophen [Acetaminophen Extra 500 mg PO QID PRN 15 Days #60 05/31/21 04/29/23 Strength] tablet Docusate Sodium 100Mg Capsule 100 mg PO DAILY #20 cap 05/31/21 04/29/23 [Colace 100Mg Capsule] Meloxicam [Mobic] 7.5 mg PO BID 15 Days #30 tablet 05/31/21 04/29/23 Ondansetron Odt [Zofran] 4 mg TL Q6H PRN #20 tablet 05/31/21 04/29/23 oxyCODONE [Roxicodone] 5 mg PO Q6H PRN #20 tablet 05/31/21 04/29/23 Oxycodone HCl/Acetaminophen 1 - 2 each PO Q6H PRN #14 tablet 12/18/22 04/29/23 [Percocet 5-325 mg Tablet] Potassium Chloride 20 meq PO BID #14 tab 04/29/23 - Allergies Allergies/Adverse Reactions: Allergies Allergy/AdvReac Type Severity Reaction Status Date / Time erythromycin base Allergy Anaphylaxis Verified 04/29/23 14:33 prednisone Allergy Edema Verified 04/29/23 14:33 shellfish derived Allergy Nausea Verified 04/29/23 14:33 sumatriptan [From Imitrex] Allergy Edema Verified 04/29/23 14:33 sumatriptan succinate * Allergy Edema Verified 04/29/23 14:33 [From Imitrex] - Social History Does the pt smoke?: No Smoking Status: Never smoker Does the pt drink ETOH?: Yes Does the pt have substance abuse?: No - Immunizations Immunizations are current?: Yes Immunizations: TDAP >10years/unknown - POLST Patient has POLST: No PD ED PE NORMAL - Vitals Vital signs reviewed: Yes - General General: Alert and oriented X 3 - HEENT HEENT: Atraumatic - Respiratory Respiratory: No respiratory distress - Extremities Extremities: Other (Tenderness to palpation to the lateral malleolus of the left ankle. Some notable ecchymosis at the base of the foot. No navicular pain or tenderness to palpation at the base of the fifth metatarsal. DP and PT pulses palpable.) Results - Vitals Vitals: Vital Signs - 24 hr 06/04/23 15:57 Temperature 36.2 C L Heart Rate 110 H Respiratory 18 Rate Blood Pressure 144/92 H O2 Saturation 100 Oxygen O2 Source Room air PD Medical Decision Making - ED course Complexity details: reviewed results, d/w patient ED course: Patient 48-year-old female presenting with left ankle injury. Afebrile, hemodynamically stable. Neurovascularly intact in the affected ankle. Strong pulses and no indications of vascular or tendon injury. She did report a history of some mild neuropathy in her feet. Tenderness was noted to the lateral malleolus. X-rays negative for acute fracture. Discussed mechanisms to help with mobility during the healing process. She requested a walking boot which was provided here in the emergency department. Will encourage careful follow-up with primary care or return to the emergency department as needed. Departure - Departure Disposition: 01 Home, Self Care Clinical Impression: Ankle injury Qualifiers: Encounter type: initial encounter Laterality: left Qualified Code(s): S99.912A - Unspecified injury of left ankle, initial encounter Condition: Stable Instructions: ED Sprain Ankle W X Ray Comments: Thank you for allowing us to care for you today would be general. The x-rays taken today did not show any acute fracture to your foot or ankle. Please use the walking boot provided here in the emergency department as well as your cane for support as needed. [id number] Motrin and Tylenol are excellent medications to take for pain control. Ice packs and elevation of the injured extremity are also asked on strategies for decreasing swelling and thereby decreasing pain. You should have marked improvement in your symptoms within 1 week. If 1 week goes by and you do not have notable improvement in pain or ability to bear weight on your affected leg please either follow-up with your primary care doctor or return to the emergency department for reevaluation. Forms: PCP List Discharge Date/Time: 06/04/23 18:25
== END 2023-06-04 18:25 | disposition home or self-care (01) ==
LOC: ED 15:35
DX: S99.912A Unspecified injury of left ankle, initial encounter (principal); W01.0XXA Fall on same level from slipping, tripping and stumbling without subsequent striking against object, initial encounter; Y93.E8 Activity, other personal hygiene; Y92.009 Unspecified place in unspecified non-institutional (private) residence as the place of occurrence of the external cause
CPT/HCPCS: 99283

== ENCOUNTER 2023-08-09 13:26 | Outpatient (CLI) | payer MEDICAID ==
[2023-08-09 16:57] LABS: CALCIUM 12.6 mg/dL (8.5-10.3); CREATININE 0.9 mg/dL (0.6-1.3); POTASSIUM 2.2 mmol/L (3.5-4.5)
== END 2023-08-09 13:27 | disposition home or self-care (01) ==
LOC: LAB 13:26
PROVIDERS: ATTEND Nurse Practitioner
DX: R11.15 Cyclical vomiting syndrome unrelated to migraine (principal)
CPT/HCPCS: 36415; 80048

== ENCOUNTER 2023-08-10 19:55 | Emergency (ER) | payer MEDICAID ==
[2023-08-10 20:21] LABS: BASOPHILS % (AUTO) 0.5 %; EOSINOPHILS # (AUTO) 0.3 10^3/uL (0.0-0.7); EOSINOPHILS % (AUTO) 3.7 %; HCT - HEMATOCRIT 50.2 % (37.0-47.0); HGB - HEMOGLOBIN 16.8 g/dL (12.0-16.0); LYMPHOCYTES # (AUTO) 3.4 10^3/uL (1.5-3.5); LYMPHOCYTES % (AUTO) 46.5 %; MEAN CORPUSCULAR HEMOGLOBIN 32.1 pg (27.0-31.0); MEAN CORPUSCULAR HGB CONC 33.5 g/dL (32.0-36.0); MEAN PLATELET VOLUME 8.8 fL (7.9-10.8); MONOCYTES # (AUTO) 0.6 10^3/uL (0.0-1.0); MONOCYTES % (AUTO) 8.4 %; NEUTROPHILS % (AUTO) 40.8 %; PLT - PLATELET COUNT 231 10^3/uL (130-450); RED BLOOD COUNT 5.23 10^6/uL (4.20-5.40); RED CELL DISTRIBUTION WIDTH 14.6 % (12.0-15.0); WHITE BLOOD COUNT 7.4 x10^3/uL (4.8-10.8)
[2023-08-10 20:36] LABS: MAGNESIUM 1.8 mg/dL (1.7-2.3)
[2023-08-10 20:46] LABS: BUN - BLOOD UREA NITROGEN 8 mg/dL (6-20); CARBON DIOXIDE - CO2 42 mmol/L (21-32); CHLORIDE 94 mmol/L (101-111); CREATININE 0.8 mg/dL (0.6-1.3); GFR - MDRD 77 (>89); GLUCOSE 109 mg/dL (74-104); IONIZED CALCIUM IF INDICATED NO; POTASSIUM 2.4 mmol/L (3.5-4.5); SODIUM 140 mmol/L (135-145)
--- NOTE | 2023-08-10 20:53 | ED Physician Documentation ---
History of Present Illness - Stated complaint Stated Complaint: LOW POTASSIUM - Chief complaint Chief Complaint: General - Additonal information Additional information: Patient with history of known cyclic vomiting due to hiatal hernia and GERD presents to the emergency department for hypokalemia. Patient reports that she had her labs done outpatient yesterday ordered by her primary care provider because patient says that she is feeling like she is having low potassium. Patient says that she has been asking her primary care provider for her potassium prescription for some time now and has been having a hard time getting this order. She was called by her primary care provider's office for potassium of 2.2 and was told to present to the emergency department for a further evaluation. Patient has been here in the past for similar complaints. 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 HEENT: None Psych: None Musculoskeletal: Chronic back pain Derm: None - Past Surgical History Past Surgical History: No General: Colonoscopy, Other - Present Medications Home Medications: Ambulatory Orders Medication Instructions Recorded Confirmed Metoclopramide [Reglan] 10 mg PO Q6H PRN #15 tablet 08/03/15 04/29/23 Fluticasone [Flonase] 1 spray BRIT DAILY 12/26/19 04/29/23 Gabapentin 1 tab PO BID 12/26/19 04/29/23 Magnesium 2 tab PO DAILY 12/26/19 04/29/23 Tizanidine HCl 1 tab PO ONCE PRN 12/26/19 04/29/23 Topiramate [Topamax] 1 tab PO BID 12/26/19 04/29/23 diphenhydrAMINE [Benadryl] 25 mg PO PRN PRN 12/26/19 04/29/23 Levonorgestrel 20 Mcg/24H [Mirena] 1 each IY DAILY 12/27/19 04/29/23 Omeprazole Magnesium [Prilosec] 2.5 mg PO PRN PRN 12/27/19 04/29/23 ondansetron HCL [Zofran] 4 mg PO PRN PRN 12/27/19 04/29/23 Acetaminophen [Acetaminophen Extra 500 mg PO QID PRN 15 Days #60 05/31/21 04/29/23 Strength] tablet Docusate Sodium 100Mg Capsule 100 mg PO DAILY #20 cap 05/31/21 04/29/23 [Colace 100Mg Capsule] Meloxicam [Mobic] 7.5 mg PO BID 15 Days #30 tablet 05/31/21 04/29/23 Ondansetron Odt [Zofran] 4 mg TL Q6H PRN #20 tablet 05/31/21 04/29/23 oxyCODONE [Roxicodone] 5 mg PO Q6H PRN #20 tablet 05/31/21 04/29/23 Oxycodone HCl/Acetaminophen 1 - 2 each PO Q6H PRN #14 tablet 12/18/22 04/29/23 [Percocet 5-325 mg Tablet] Potassium Chloride 20 meq PO BID #14 tab 04/29/23 Potassium Chloride 40 meq PO DAILY #30 tab 08/10/23 - Allergies Allergies/Adverse Reactions: Allergies Allergy/AdvReac Type Severity Reaction Status Date / Time erythromycin base Allergy Anaphylaxis Verified 08/10/23 20:05 prednisone Allergy Edema Verified 08/10/23 20:05 shellfish derived Allergy Nausea Verified 08/10/23 20:05 sumatriptan [From Imitrex] Allergy Edema Verified 08/10/23 20:05 sumatriptan succinate * Allergy Edema Verified 08/10/23 20:05 [From Imitrex] - Social History Does the pt smoke?: No Smoking Status: Never smoker Does the pt drink ETOH?: Yes Does the pt have substance abuse?: No - Immunizations Immunizations are current?: Yes Immunizations: TDAP >10years/unknown - POLST Patient has POLST: No PD ED PE NORMAL - Vitals Vital signs reviewed: Yes - General General: Alert and oriented X 3, No acute distress, Well developed/nourished - HEENT HEENT: Atraumatic - Cardiac Cardiac: RRR, No murmur, Strong equal pulses - Respiratory Respiratory: No respiratory distress, Clear bilaterally - Abdomen Abdomen: Normal bowel sounds, Soft, Non tender - Derm Derm: Normal color Results - Vitals Vitals: Vital Signs - 24 hr 08/10/23 08/10/23 08/10/23 19:57 20:56 21:30 Temperature 37.1 C Heart Rate 91 79 67 Respiratory 16 20 17 Rate Blood Pressure 126/87 H 122/94 H 118/94 H O2 Saturation 97 98 97 Oxygen O2 Source Room air - Labs Labs: Laboratory Tests 08/10/23 08/10/23 20:14 20:14 WBC 7.4 RBC 5.23 Hgb 16.8 H Hct 50.2 H MCV 96.0 MCH 32.1 H MCHC 33.5 RDW 14.6 Plt Count 231 MPV 8.8 Neut # (Auto) 3.0 Lymph # (Auto) 3.4 [place] # (Auto) 0.6 Eos # (Auto) 0.3 Baso # (Auto) 0.0 Absolute Nucleated RBC 0.00 Nucleated RBC % 0.0 Sodium 140 Potassium 2.4 L* Chloride 94 L Carbon Dioxide 42 H* Anion Gap 4.0 L BUN 8 Creatinine 0.8 Estimated GFR (MDRD) 77 L Glucose 109 H Calcium 12.0 H* Ionized Calcium NO Magnesium 1.8 PD Medical Decision Making - ED course ED course: Patient presents emergency department for complaints of hypokalemia. Labs are complete her hemoglobin hematocrit were found to be slightly elevated hemoglobin 16.8, hematocrit 50.2. Chemistry panel also complete which reveals potassium of 2.4, magnesium within normal limits at 1.8. Her calcium was found to be elevated at 12 and carbon dioxide is found to be at 42. Patient was given 40 mill equivalents p.o. potassium here in the emergency department a prescription of potassium was sent to her preferred pharmacy and she was told to follow-up with her primary care provider for further evaluation of her lab abnormalities. Patient says that she thinks her calcium is elevated because she takes a lot of Tums at home. She is working with her PCP was trying to get off of her Tums as well as working with her PCP with her cyclic vomiting. She says that she feels like she is able to control her cyclic vomiting with antinausea medications that she has at home. She understands return precautions safe for discharge. Departure - Departure Disposition: 01 Home, Self Care Clinical Impression: Hypokalemia, Hypercalcemia Condition: Good Instructions: Hypokalemia Dc, Diet Low Potassium Dc Prescriptions: Potassium Chloride 40 meq PO DAILY #30 tab Comments: Thank you for trusting us with your care. We have given you 40 mill equivalents of potassium here in the emergency department to help with your hypokalemia. We also found that your calcium was elevated at 12.0 please help with your primary care provider to have your labs reevaluated and for further investigation of this. I have sent a prescription of potassium to your preferred pharmacy I would take 2 pills tomorrow, and 2 pills the following day, for a total of 40 mill equivalents for the next 2 days and then I would have your labs reevaluated by her primary care provider. Please come back to the ER if you are having any signs symptoms of hypokalemia, chest pain, fevers or chills, or any other concerning symptoms. Forms: PCP List Discharge Date/Time: 08/10/23 21:35
[2023-08-10] MEDS: POTASSIUM CHLORIDE 20 MEQ TABLET PO STA (20:55)
[2023-08-10 21:51] VITALS: BP 118/94; O2SAT 97
== END 2023-08-10 21:35 | disposition home or self-care (01) ==
LOC: ED 19:55
DX: E87.6 Hypokalemia (principal); E83.52 Hypercalcemia; R11.15 Cyclical vomiting syndrome unrelated to migraine
CPT/HCPCS: 36415; 80048; 83735; 85025; 99284; A9270

== ENCOUNTER 2023-08-15 14:09 | Outpatient (CLI) | payer MEDICAID ==
[2023-08-15 14:38] LABS: CALCIUM 10.6 mg/dL (8.5-10.3); CREATININE 0.7 mg/dL (0.6-1.3); POTASSIUM 4.3 mmol/L (3.5-4.5)
== END 2023-08-15 14:10 | disposition home or self-care (01) ==
LOC: LAB 14:09
PROVIDERS: ATTEND Nurse Practitioner
DX: E87.6 Hypokalemia (principal)
CPT/HCPCS: 36415; 80048

== ENCOUNTER 2023-08-18 12:01 | Outpatient (CLI) | payer MEDICAID ==
[2023-08-18 12:21] LABS: CALCIUM 10.3 mg/dL (8.5-10.3); CREATININE 0.8 mg/dL (0.6-1.3); POTASSIUM 3.8 mmol/L (3.5-4.5)
== END 2023-08-18 12:02 | disposition home or self-care (01) ==
LOC: LAB 12:01
PROVIDERS: ATTEND Nurse Practitioner
DX: E87.6 Hypokalemia (principal)
CPT/HCPCS: 36415; 80048

== ENCOUNTER 2023-08-18 12:19 | Outpatient (CLI) | payer MEDICAID ==
--- NOTE | 2023-08-18 13:34 | XRAY Report ---
PROCEDURE: Cervical Spine 2-3V INDICATIONS: NECK PAIN TECHNIQUE: 3 view(s) of the cervical spine were acquired. Patient unable to remove earrings for exa m. COMPARISON: None. FINDINGS: The odontoid view is mildly suboptimal. Bones: No fractures or dislocations to the C7 level. The lateral masses of C1 appear intact on the odontoid view. Mild multilevel degenerative changes with osteophytosis, disc height loss and facet a rthropathy, notably at C4-C5 and C5-C6. Straightening of the normal cervical lordosis. No suspicious bony lesions. Soft tissues: No prevertebral soft tissue swelling. IMPRESSION: 1.No displaced fracture or traumatic subluxation. 2.Mild multilevel degenerative changes, worse at C4-C5 and C5-C6. Reviewed by: Ata Valdivia MD on 08/18/2023 1:33 PM PST Approved by: Ata Valdivia MD on 08/18/2023 1:33 PM PST Station ID: [id number]
--- NOTE | 2023-08-18 16:42 | XRAY Report ---
PROCEDURE: Shoulder 2+V RT INDICATIONS: RT SHOULDER PAIN TECHNIQUE: 3 views of the shoulder were acquired. COMPARISON: Left shoulder radiograph on February 16, 2023. FINDINGS: Bones: No fractures or dislocations. Normal glenohumeral alignment. Acromioclavicular and coracocla vicular intervals are maintained. No suspicious bony lesions. Visualized ribs appear intact. Soft tissues: No suspicious soft tissue calcifications. The visualized lungs are within normal limi ts. IMPRESSION: No acute bony abnormality. Reviewed by: Ata Valdivia MD on 08/18/2023 4:41 PM PST Approved by: Ata Valdivia MD on 08/18/2023 4:41 PM PST Station ID: [id number]
== END 2023-08-18 12:20 | disposition home or self-care (01) ==
LOC: DI 12:19
PROVIDERS: ATTEND Nurse Practitioner
DX: M25.511 Pain in right shoulder (principal); M47.812 Spondylosis without myelopathy or radiculopathy, cervical region; M25.78 Osteophyte, vertebrae; M50.321 Other cervical disc degeneration at C4-C5 level; E87.6 Hypokalemia
CPT/HCPCS: 36415; 80048

== ENCOUNTER 2023-08-28 14:49 | Outpatient (CLI) | payer MEDICAID ==
[2023-08-28 16:16] LABS: CALCIUM 12.4 mg/dL (8.5-10.3); CREATININE 0.8 mg/dL (0.6-1.3); POTASSIUM 3.9 mmol/L (3.5-4.5)
== END 2023-08-28 14:50 | disposition home or self-care (01) ==
LOC: LAB 14:49
PROVIDERS: ATTEND Nurse Practitioner
DX: E87.6 Hypokalemia (principal)
CPT/HCPCS: 36415; 80048

== ENCOUNTER 2023-09-01 15:58 | Outpatient (CLI) | payer MEDICAID ==
[2023-09-01 16:38] LABS: ALBUMIN 4.3 g/dL (3.2-5.5); ALBUMIN/GLOBULIN RATIO 1.5 (1.0-2.2); BILIRUBIN,TOTAL 0.9 mg/dL (0.2-1.0); CALCIUM 12.1 mg/dL (8.5-10.3); TOTAL PROTEIN 7.2 g/dL (6.4-8.9)
== END 2023-09-01 15:59 | disposition home or self-care (01) ==
LOC: LAB 15:58
PROVIDERS: ATTEND Nurse Practitioner
DX: E83.52 Hypercalcemia (principal)
CPT/HCPCS: 36415; 80053

== ENCOUNTER 2023-09-05 08:00 | Outpatient (CLI) | payer MEDICAID ==
--- NOTE | 2023-09-05 16:58 | XRAY Report ---
PROCEDURE: Shoulder 1 View RT INDICATIONS: RIGHT SHOULDER PAIN AXIAL VIEW ONLY TECHNIQUE: 3 views of the shoulder were acquired. COMPARISON: X-ray right shoulder, 08/18/2023. FINDINGS: Bones: No fractures or dislocations. No suspicious bony lesions. Visualized ribs appear intact. Soft tissues: No suspicious soft tissue calcifications. The visualized lungs are within normal limi ts. IMPRESSION: No acute bony abnormality. Reviewed by: Isabell Davila MD on 09/05/2023 4:57 PM PDT Approved by: Isabell Davila MD on 09/05/2023 4:57 PM PDT Station ID: [id number]
== END 2023-09-05 23:59 | disposition home or self-care (01) ==
LOC: DI.WOS 08:00
PROVIDERS: ATTEND Orthopaedic Surgery
DX: M25.511 Pain in right shoulder (principal)

== ENCOUNTER 2023-09-12 11:00 | Outpatient (CLI) | payer MEDICAID ==
[2023-09-12 11:35] LABS: CALCIUM, IONIZED 1.39 mmol/L (1.15-1.33); VBG PH 7.372 (7.31-7.41)
== END 2023-09-12 11:01 | disposition home or self-care (01) ==
LOC: LAB 11:00
PROVIDERS: ATTEND Internal Medicine
DX: E83.52 Hypercalcemia (principal)
CPT/HCPCS: 36415; 82306; 82330; 82397; 82652; 83970

== ENCOUNTER 2023-09-13 13:25 | Outpatient (CLI) | payer MEDICAID ==
[2023-09-13 14:07] LABS: CALCIUM 12.1 mg/dL (8.5-10.3); CREATININE 0.7 mg/dL (0.6-1.3); POTASSIUM 3.9 mmol/L (3.5-4.5)
== END 2023-09-13 13:26 | disposition home or self-care (01) ==
LOC: LAB 13:25
PROVIDERS: ATTEND Nurse Practitioner
DX: E87.6 Hypokalemia (principal)
CPT/HCPCS: 36415; 80048

== ENCOUNTER 2023-09-19 14:15 | Outpatient (CLI) | payer MEDICAID ==
--- NOTE | 2023-09-19 16:14 | XRAY Report ---
PROCEDURE: Foot 3 View RT INDICATIONS: RIGHT FOOT PAIN TECHNIQUE: 3 views of the foot were acquired. COMPARISON: Right foot radiograph on February 16, 2023. FINDINGS: Bones: No fractures or dislocations. Previously described fracture at the first metatarsal base is n ot well seen and appears healed with callus formation formation. Pes planus alignment. Mild first MTP joint space narrowing. Diffuse osseous demineralization. No suspicious bony lesions. Soft tissues: No suspicious soft tissue calcifications or masses. IMPRESSION: 1.No acute bony abnormality. If clinical symptoms persist, consider repeat [facility] 10-14 days vers us cross-sectional imaging. 2.Previously described fracture at the first metatarsal base is not well seen and appears healed with callus formation formation. Pes planus alignment. 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 Reviewed by: Ata Valdivia MD on 09/19/2023 4:13 PM PDT Approved by: Ata Valdivia MD on 09/19/2023 4:13 PM PDT Station ID: [id number]
== END 2023-09-19 23:59 | disposition home or self-care (01) ==
LOC: DI.WOS 14:15
PROVIDERS: ATTEND Orthopaedic Surgery
DX: S92.31 Fracture of first metatarsal bone (principal); M21.41 Flat foot [pes planus] (acquired), right foot

== ENCOUNTER 2023-09-20 13:14 | Outpatient (CLI) | payer MEDICAID ==
[2023-09-20 14:00] LABS: CALCIUM 12.9 mg/dL (8.5-10.3)
[2023-09-20 14:01] LABS: CREATININE 0.7 mg/dL (0.6-1.3); POTASSIUM 4.1 mmol/L (3.5-4.5)
== END 2023-09-20 13:15 | disposition home or self-care (01) ==
LOC: LAB 13:14
PROVIDERS: ATTEND Nurse Practitioner
DX: E87.6 Hypokalemia (principal)
CPT/HCPCS: 36415; 80048

== ENCOUNTER 2023-09-29 10:48 | Outpatient (CLI) | payer MEDICAID ==
--- NOTE | 2023-10-02 09:08 | Mammography Report ---
BILATERAL DIGITAL DIAGNOSTIC MAMMOGRAM 3D/2D: 09/29/2023 CLINICAL: Patient returns for a 6 month follow up of the left breast, due for bilateral exam. Comparison is made to exams dated: 11/04/2022 mammogram, 02/24/2022 mammogram, 02/08/2022 mammogram, mammogram, 11/26/2019 mammogram, and 11/04/2022 ultrasound - [facility]. Both breasts are extremely dense, which lowers the sensitivity of mammography (category d />75% gland ular tissue). There is an oval equal density focal asymmetry in the left breast at 8 o'clock middle depth. This is less prominent. No other significant masses, calcifications, or other findings are seen in either breast. IMPRESSION: INCOMPLETE: NEEDS ADDITIONAL IMAGING EVALUATION The oval equal density focal asymmetry in the left breast is indeterminate. An ultrasound is recomme nded. Based on Tyrer-Cuzick model (a risk assessment model), the patient's lifetime risk is 31.1% and her 1 0 year risk is 6.6%. If a patient has an elevated risk, a more comprehensive evaluation should be con sidered and/or a referral to a genetic counselor. The [place] [employer], [employer] [place] [employer], and NCCN Guidelines advise the consideration of Breast MRI as an adjunct to screening mammog eric in patients whose "Lifetime risk to develop breast cancer" is 20% or higher. This exam was interpreted at Station ID: [id number]. NOTE: For mammograms, a report in lay terms will be sent to the patient. Approximately 15% of breast malignancies will not be visualized mammographically. In the management of a palpable breast mass, a negative mammogram must not discourage biopsy of a clinically suspicious lesion. Electronically Signed By: Alo escobedo/eliezer:09/29/2023 14:55:04 ACR BI-RADS Category 0: Incomplete 3340F PARENCHYMAL PATTERN: (VD) - The breast(s) demonstrate(s) extremely dense parenchyma, limiting the sen sitivity of mammography. BI-RADS CATEGORY: (0) - 0 Ultrasound [id number] Immediate follow-up LATERALITY: (L)
--- NOTE | 2023-10-02 09:08 | Ultrasound Report ---
LIMITED ULTRASOUND OF LEFT BREAST: 09/29/2023 CLINICAL: Follow-up of left asym. Comparison is made to exams dated: 11/04/2022 ultrasound, 11/04/2022 mammogram, 02/24/2022 ultrasound, 02/24/2022 mammogram, 09/29/2023 mammogram, and 02/08/2022 mammogram - [facility]. Color flow ultrasound of the left breast 9 o'clock region was performed. Soto scale images of the r eal-time examination were reviewed. No significant abnormalities were seen sonographically in the left breast. IMPRESSION: PROBABLY BENIGN There is no abnormality seen in the left breast to correspond with the mammography finding. A follow-up left mammogram in 6 months is recommended to demonstrate stability. This exam was interpreted at Station ID: [id number]. Electronically Signed By: Alo escobedo/eliezer:09/29/2023 14:57:06 Ultrasound BI-RADS: 3 Probably benign BI-RADS CATEGORY: (3) - 3 Mammogram [id number] 6 month follow-up LATERALITY: (L)
== END 2023-09-29 10:49 | disposition home or self-care (01) ==
LOC: DI 10:48
PROVIDERS: ATTEND Nurse Practitioner
DX: R92.8 Other abnormal and inconclusive findings on diagnostic imaging of breast (principal); R92.343 Mammographic extreme density, bilateral breasts

== ENCOUNTER 2023-11-14 18:59 | Outpatient (CLI) | payer MEDICAID ==
[2023-11-14 21:06] LABS: CALCIUM 12.8 mg/dL (8.5-10.3); CREATININE 0.7 mg/dL (0.6-1.3); POTASSIUM 2.6 mmol/L (3.5-4.5)
== END 2023-11-14 19:00 | disposition home or self-care (01) ==
LOC: LAB 18:59
PROVIDERS: ATTEND Nurse Practitioner
DX: E87.6 Hypokalemia (principal)
CPT/HCPCS: 36415; 80048

== ENCOUNTER 2023-11-16 17:08 | Outpatient (CLI) | payer MEDICAID | END 2023-11-16 17:09 | disposition home or self-care (01) | LOC: LAB 17:08 | PROVIDERS: ATTEND Student in an Organized Health Care Education/Training Program | DX: E21.3 Hyperparathyroidism, unspecified (principal) | CPT/HCPCS: 36415; 80069; 82306; 83970 ==

== ENCOUNTER 2023-11-18 08:00 | Outpatient (CLI) | payer MEDICAID ==
[2023-11-18 16:05] LABS: CREATININE,URINE 97.1 mg/dL
[2023-11-20 14:09] LABS: CALCIUM URINE 21.6 mg/dL (Not Estab.)
== END 2023-11-18 23:59 | disposition home or self-care (01) ==
LOC: LAB.R 08:00
PROVIDERS: ATTEND Student in an Organized Health Care Education/Training Program
DX: E21.3 Hyperparathyroidism, unspecified (principal)
CPT/HCPCS: 82340; 82570

== ENCOUNTER 2023-11-22 15:33 | Outpatient (CLI) | payer MEDICAID | END 2023-11-22 15:34 | disposition home or self-care (01) | LOC: LAB 15:33 | PROVIDERS: ATTEND Nurse Practitioner | DX: E87.6 Hypokalemia (principal) | CPT/HCPCS: 36415; 84132 ==

== ENCOUNTER 2023-12-15 16:16 | Outpatient (CLI) | payer MEDICAID ==
[2023-12-15 16:44] LABS: CALCIUM 12.5 mg/dL (8.5-10.3); CREATININE 0.8 mg/dL (0.6-1.3); POTASSIUM 3.4 mmol/L (3.5-4.5)
== END 2023-12-15 16:17 | disposition home or self-care (01) ==
LOC: LAB 16:16
PROVIDERS: ATTEND Nurse Practitioner
DX: E87.6 Hypokalemia (principal)
CPT/HCPCS: 36415; 80048

== ENCOUNTER 2024-01-03 15:16 | Outpatient (CLI) | payer MEDICAID ==
[2024-01-03 16:12] LABS: CALCIUM 13.4 mg/dL (8.5-10.3); CREATININE 0.7 mg/dL (0.6-1.3); POTASSIUM 3.4 mmol/L (3.5-4.5)
== END 2024-01-03 15:17 | disposition home or self-care (01) ==
LOC: LAB 15:16
PROVIDERS: ATTEND Nurse Practitioner
DX: E87.6 Hypokalemia (principal)
CPT/HCPCS: 36415; 80048

== ENCOUNTER 2024-01-11 15:42 | Outpatient (CLI) | payer MEDICAID ==
[2024-01-11 16:55] LABS: CALCIUM 12.5 mg/dL (8.5-10.3); CREATININE 0.7 mg/dL (0.6-1.3); POTASSIUM 3.2 mmol/L (3.5-4.5)
== END 2024-01-11 15:43 | disposition home or self-care (01) ==
LOC: LAB 15:42
PROVIDERS: ATTEND Nurse Practitioner
DX: E87.6 Hypokalemia (principal)
CPT/HCPCS: 36415; 80048

== ENCOUNTER 2024-02-10 14:44 | Outpatient (CLI) | payer MEDICAID ==
[2024-02-10 15:12] LABS: CALCIUM 8.9 mg/dL (8.5-10.3); CREATININE 0.8 mg/dL (0.6-1.3); POTASSIUM 3.8 mmol/L (3.5-4.5)
== END 2024-02-10 14:45 | disposition home or self-care (01) ==
LOC: LAB 14:44
PROVIDERS: ATTEND Nurse Practitioner
DX: E87.6 Hypokalemia (principal)
CPT/HCPCS: 36415; 80048

== ENCOUNTER 2024-05-14 16:13 | Inpatient (IN) ==
--- NOTE | 2024-05-14 16:32 | ED Physician Documentation ---
History of Present Illness Stated complaint Stated Complaint: HIP DISLOCATION Chief complaint Chief Complaint: Ext Problem History obtained from History obtained from: Patient and Family History of Present Illness Pain level max: 6 Pain level now: 6 Additonal information Additional information: Patient has a history of a right superior parathyroid adenoma, has been excised. Her left superior parathyroid was excised as well. Both were negative for malignancy. Has a history of cyclical vomiting syndrome. Calcium is traditionally high. Colonoscopy in the past has shown polyps, EGD with esophagitis. Has been taking Tums and pantoprazole in the past. Has had GERD along with her cyclical vomiting syndrome for many years. She states that she has a history of 9 fractures including a fractured humerus in the past. She has broken her wrist x 2 and elbow x 2. Had back surgery in June 2023 due to sciatica. She states that she has had a DEXA scan which showed a normal bone density. Was seen here recently for a fall and left wrist pain. Last night fell again at home, complaining of right hip pain. She states that she has not been able to walk on it since. Worse with movement, better with rest. No head, neck, back pain. She has a history of multiple fractures throughout her body, but states that she has never broken her hip. Also complains of mild right knee pain. Rosa M Coma Scale Assess Eye opening: Spontaneous Verbal response: Oriented Motor response: Obeys Commands Total score: 15 Review of Systems Constitutional Denies: Fever or Chills Cardiovascular Denies: chest pain Respiratory Denies: Cough or Sputum production Gastrointestinal Denies: Nausea or Vomiting Meds/Allgy Home Medications Ambulatory Orders Medication Instructions Recorded Confirmed metoclopramide HCl 10 mg tablet 10 mg PO Q6H PRN Nausea / Vomiting 08/03/15 04/29/23 #15 tabs diphenhydramine HCl 25 mg capsule 25 mg PO PRN PRN hives 12/26/19 04/29/23 (Banophen) fluticasone propionate 50 1 spray intranasal DAILY 12/26/19 04/29/23 mcg/actuation nasal spray,suspension magnesium 250 mg tablet 2 tab PO DAILY 12/26/19 04/29/23 topiramate 25 mg tablet (Topamax) 1 tab PO BID 12/26/19 04/29/23 levonorgestrel (Mirena) 1 ea intrauterine DAILY 12/27/19 04/29/23 omeprazole magnesium 2.5 mg oral 2.5 mg PO PRN PRN Heartburn 12/27/19 04/29/23 suspension,delayed release (Prilosec) ondansetron HCl 4 mg tablet 4 mg PO PRN PRN Nausea / Vomiting 12/27/19 04/29/23 (Zofran) acetaminophen 500 mg tablet 500 mg PO QID PRN Pain 15 days #60 05/31/21 04/29/23 (Acetaminophen Extra Strength) tabs docusate sodium 100 mg capsule 100 mg PO DAILY #20 caps 05/31/21 04/29/23 (Stool Softener) meloxicam 7.5 mg tablet 7.5 mg PO BID 15 days #30 tabs 05/31/21 04/29/23 ondansetron 4 mg disintegrating 4 mg translingual Q6H PRN Nausea / 05/31/21 04/29/23 tablet Vomiting #20 tabs oxycodone 5 mg tablet 5 mg PO Q6H PRN Pain #20 tabs 05/31/21 04/29/23 oxycodone-acetaminophen 5 mg-325 1 - 2 ea PO Q6H PRN pain #14 tabs 12/18/22 04/29/23 mg tablet (Percocet) potassium chloride 20 mEq 20 meq PO BID #14 tabs 04/29/23 tablet,extended release(part/cryst) potassium chloride 20 mEq 40 meq (2 x 20 mEq) PO DAILY #30 08/10/23 tablet,extended release(part/cryst) tabs scopolamine base 1 mg over 3 days 1 patch transdermal Q3D PRN nausea 03/20/24 transdermal patch (Transderm-Scop) and vomiting #4 ea scopolamine base 1 mg over 3 days 1 patch transdermal Q3D PRN nausea 03/25/24 transdermal patch (Transderm-Scop) and vomiting #4 ea gabapentin 100 mg capsule 100 - 200 mg (1 - 2 x 100 mg) PO 05/02/24 05/05/24 TID PRN pain #180 caps tizanidine 4 mg tablet 4 mg PO ONCE PRN Migraine #90 tabs 05/06/24 Allergies Allergies Allergy/AdvReac Type Severity Reaction Status Date / Time shrimp Allergy Unknown Unknown Verified 05/13/24 14:09 erythromycin base Allergy Anaphylaxis Verified 05/13/24 14:09 prednisone Allergy Edema Verified 05/13/24 14:09 shellfish derived Allergy Nausea Verified 05/13/24 14:09 sumatriptan (From Imitrex) Allergy Edema Verified 05/13/24 14:09 sumatriptan succinate * Allergy Edema Verified 05/13/24 14:09 (From Imitrex) PFSH Social History Social History Smoking Status: Never smoker How many cigarettes a day do you smoke? (20 cigarettes=1 Pk): 1 Relationship: Level: Independent Do you feel safe in your home environment?: Yes Suffered physical, verbal, emotional, or financial abuse?: No History of Abuse: No ETOH Use: Frequency: Daily Number of Amount/day: 2 POLST Patient has POLST: No Exam Constitutional normal general appearance and no apparent distress HENMT normocephalic and head/scalp atraumatic Eyes PERRL Respiratory normal respiratory effort and clear to auscultation bilaterally Cardiovascular regular rhythm noted Gastrointestinal abdomen soft to palpation, nontender to palpation and nondistended Genitourinary no CVA tenderness Back/Pelvis no thoracic spine tenderness and no lumbar spine tenderness Extremities TTP over the R hip, very limited ROM 2/2 pain. NVI. mild TTP over the R knee as well Psychiatry mental status grossly normal and oriented x3 Skin skin color normal and no rash Results Vitals Vitals: Vital Signs - 24 hr 05/14/24 16:16 05/14/24 16:23 05/14/24 17:06 Temperature 37.5 C Temperature Source Temporal Artery Scan Pulse Rate 92 H 88 117 H Respiratory Rate 20 20 20 Blood Pressure 135/103 H 135/103 H 155/112 H O2 Saturation 99 91 L 98 O2 Source Room air Room air Room air Pain Intensity 9 9 9 05/14/24 17:09 05/14/24 18:44 05/14/24 19:22 Temperature Temperature Source Pulse Rate 104 H Respiratory Rate 18 Blood Pressure 146/109 H O2 Saturation 98 98 O2 Source Room air Pain Intensity 9 5 05/14/24 19:58 05/14/24 20:28 Temperature Temperature Source Pulse Rate Respiratory Rate Blood Pressure O2 Saturation O2 Source Pain Intensity 9 4 Oxygen O2 Source Room air Labs Labs: Laboratory Tests 05/14/24 17:04 WBC 11.7 H RBC 3.75 L Hgb 13.9 Hct 39.9 MCV 106.4 H MCH 37.1 H MCHC 34.8 RDW 13.9 Plt Count 216 MPV 8.3 Neut # (Auto) 10.1 H Lymph # (Auto) 1.0 L Bradford # (Auto) 0.5 Eos # (Auto) 0.0 Baso # (Auto) 0.0 Absolute Nucleated RBC 0.00 Nucleated RBC % 0.0 Sodium 145 Potassium 3.0 L Chloride 102 Carbon Dioxide 24 Anion Gap 19.0 H BUN 9 Creatinine 0.5 L Estimated GFR (MDRD) 132 Glucose 144 H Calcium 9.5 Total Bilirubin 1.1 H AST 27 ALT 16 Alkaline Phosphatase 97 Total Protein 7.3 Albumin 4.6 Globulin 2.7 Albumin/Globulin Ratio 1.7 Rads (name of study) R hip xray: Relevant Findings:: Final report received R knee xray: Relevant Findings:: Final report received PD Medical Decision Making ED course Complexity details: reviewed results, considered differential, d/w patient, d/w family and d/w workforce management consultant ED course: 49-year-old female with a right hip fracture. Discussed the case with Dr. Lucio, orthopedics on-call who will admit the patient and plan for OR tomorrow. No acute findings on x-ray of the right knee. He also requested a CT scan of the right hip. This was ordered. He will follow-up on the results. Patient has no other acute injuries. Pain well-controlled with Dilaudid. This document was made in part using voice recognition software. While efforts are made to proofread this document, sound alike and grammatical errors may occur. Discharge Plan Discharge Patient Disposition: 66 [facility] DC/Xfer Condition: Stable Clinical Impression: Fracture of hip, right, closed Qualifiers: Encounter type: initial encounter Qualified Code(s): S72.001A - Fracture of unspecified part of neck of right femur, initial encounter for closed fracture Interventions: ED Admission Assessment Last Done: 05/14/24 20:28
--- NOTE | 2024-05-14 16:54 | XRAY Report ---
PROCEDURE: XR Hip w/Pelvis 2-3V RT INDICATIONS: fall, R hip pain TECHNIQUE: 2 views of the hip were acquired. COMPARISON: None. FINDINGS: Bones: Comminuted mildly displaced femoral neck/intertrochanteric fracture. No dislocation at the hi p joint. Soft tissues: No suspicious soft tissue calcifications or masses. IUD is present. IMPRESSION: Comminuted displaced intertrochanteric/femoral neck fracture. Reviewed by: Miladis De La Cruz MD on 05/14/2024 4:52 PM PST Approved by: Miladis De La Cruz MD on 05/14/2024 4:52 PM PST Station ID: [id number]
--- NOTE | 2024-05-14 16:54 | XRAY Report ---
PROCEDURE: XR Knee 4+V RT INDICATIONS: fall, pain TECHNIQUE: 4 views of the knee(s) were acquired. COMPARISON: None. FINDINGS: Bones: No fractures or dislocations. No suspicious bony lesions. Soft tissues: Mild knee joint effusion. No suspicious soft tissue calcifications or masses. IMPRESSION: Mild effusion. No visualized acute fracture or dislocation. However, occult injury cannot be excluded . Recommend short interval imaging follow-up in 7-10 days as clinically indicated for additional eval uation. Reviewed by: Miladis De La Cruz MD on 05/14/2024 4:53 PM PST Approved by: Miladis De La Cruz MD on 05/14/2024 4:53 PM PST Station ID: [id number]
[2024-05-14 17:09] LABS: BASOPHILS % (AUTO) 0.3 %; HCT - HEMATOCRIT 39.9 % (37.0-47.0); HGB - HEMOGLOBIN 13.9 g/dL (12.0-16.0); LYMPHOCYTES % (AUTO) 8.7 %; MEAN CORPUSCULAR HEMOGLOBIN 37.1 pg (27.0-31.0); MEAN CORPUSCULAR HGB CONC 34.8 g/dL (32.0-36.0); MEAN CORPUSCULAR VOLUME 106.4 fL (81.0-99.0); MEAN PLATELET VOLUME 8.3 fL (7.9-10.8); MONOCYTES # (AUTO) 0.5 10^3/uL (0.0-1.0); MONOCYTES % (AUTO) 3.9 %; NEUTROPHILS # (AUTO) 10.1 10^3/uL (1.5-6.6); NEUTROPHILS % (AUTO) 86.8 %; PLT - PLATELET COUNT 216 10^3/uL (130-450); RED BLOOD COUNT 3.75 10^6/uL (4.20-5.40); RED CELL DISTRIBUTION WIDTH 13.9 % (12.0-15.0); WHITE BLOOD COUNT 11.7 x10^3/uL (4.8-10.8)
[2024-05-14] MEDS: SODIUM CHLORIDE 0.9% 1,000 ML IV STA (17:09)
[2024-05-14] MEDS: HYDROmorphone 1 MG/ML CARPUJECT IVP STA ×2 (17:09→19:58)
[2024-05-14 17:31] LABS: ALBUMIN 4.6 g/dL (3.2-5.5); ALBUMIN/GLOBULIN RATIO 1.7 (1.0-2.2); BILIRUBIN,TOTAL 1.1 mg/dL (0.2-1.0); CALCIUM 9.5 mg/dL (8.5-10.3); CREATININE 0.5 mg/dL (0.6-1.3); TOTAL PROTEIN 7.3 g/dL (6.4-8.9)
--- NOTE | 2024-05-14 18:45 | PREOP HISTORY & PHYSICAL ---
Surgical History & Physical Chief Complaint/HPI History of Present Illness: CC: RIGHT Hip Fracture HPI: 49yo F with past medical history of hypertension, peripheral neuropathy, anxiety, depression and seizures presents to emergency department 1 day after a ground-level fall. She reports that she fell in her house and was unable to get up. She was helped into her bed and stayed there overnight. She eventually presented to the emergency department today without being able to ambulate because of significant pain in the right hip. Radiographs were obtained and a hip fracture was identified. Orthopedics was then consulted. Patient reports that she has had multiple fractures throughout her lifetime. However the majority of her fractures were trauma related. She denies any family history of fracture patterns. Past medical history: Generalized seizures -she had approximately 6 seizures back in 2005 and she was started on Depakote. She did not have a seizure after that medication and so she self discontinued the medication and has not had a seizure since. Peripheral neuropathy for unknown reason Depression Anxiety Migraines Chronic back pain Past surgical history: Deviated septum repair in 2005 Lumbar discectomy June 2023 Parathyroidectomy January 2024 Allergies: Erythromycin Prednisone Sumatriptan Shrimp Home Meds and Allergies Active Medications Generic Name Dose Route Start Last Admin Trade Name Freq PRN Reason Stop Dose Admin Sodium Chloride 1,000 mls @ 150 mls/hr 05/14/24 16:58 05/14/24 17:09 Normal Saline 0.9% IV 05/14/24 23:37 150 mls/hr .Q6H40M STA Administration metoclopramide HCl 10 mg tablet 10 mg PO Q6H PRN Nausea / Vomiting #15 tabs 08/03/15 diphenhydramine HCl 25 mg capsule (Banophen) 25 mg PO PRN PRN hives 12/26/19 fluticasone propionate 50 mcg/actuation nasal spray,suspension 1 spray intranasal DAILY 12/26/19 magnesium 250 mg tablet 2 tab PO DAILY 12/26/19 topiramate 25 mg tablet (Topamax) 1 tab PO BID 12/26/19 levonorgestrel (Mirena) 1 ea intrauterine DAILY 12/27/19 omeprazole magnesium 2.5 mg oral suspension,delayed release (Prilosec) 2.5 mg PO PRN PRN Heartburn 12/27/19 ondansetron HCl 4 mg tablet (Zofran) 4 mg PO PRN PRN Nausea / Vomiting 12/27/19 acetaminophen 500 mg tablet (Acetaminophen Extra Strength) 500 mg PO QID PRN Pain 15 days #60 tabs 05/31/21 docusate sodium 100 mg capsule (Stool Softener) 100 mg PO DAILY #20 caps 05/31/21 meloxicam 7.5 mg tablet 7.5 mg PO BID 15 days #30 tabs 05/31/21 ondansetron 4 mg disintegrating tablet 4 mg translingual Q6H PRN Nausea / Vomiting #20 tabs 05/31/21 oxycodone 5 mg tablet 5 mg PO Q6H PRN Pain #20 tabs 05/31/21 oxycodone-acetaminophen 5 mg-325 mg tablet (Percocet) 1 - 2 ea PO Q6H PRN pain #14 tabs 12/18/22 potassium chloride 20 mEq tablet,extended release(part/cryst) 20 meq PO BID #14 tabs 04/29/23 potassium chloride 20 mEq tablet,extended release(part/cryst) 40 meq (2 x 20 mEq) PO DAILY #30 tabs 08/10/23 scopolamine base 1 mg over 3 days transdermal patch (Transderm-Scop) 1 patch transdermal Q3D PRN nausea and vomiting #4 ea 03/20/24 scopolamine base 1 mg over 3 days transdermal patch (Transderm-Scop) 1 patch transdermal Q3D PRN nausea and vomiting #4 ea 03/25/24 gabapentin 100 mg capsule 100 - 200 mg (1 - 2 x 100 mg) PO TID PRN pain #180 caps 05/02/24 tizanidine 4 mg tablet 4 mg PO ONCE PRN Migraine #90 tabs 05/06/24 Allergies Allergy/AdvReac Type Severity Reaction Status Date / Time shrimp Allergy Unknown Unknown Verified 05/13/24 14:09 erythromycin base Allergy Anaphylaxis Verified 05/13/24 14:09 prednisone Allergy Edema Verified 05/13/24 14:09 shellfish derived Allergy Nausea Verified 05/13/24 14:09 sumatriptan (From Imitrex) Allergy Edema Verified 05/13/24 14:09 sumatriptan succinate * Allergy Edema Verified 05/13/24 14:09 (From Imitrex) Vital Signs O2 Saturation: 98 Patient Review Patient Review Pertinent Tests Reviewed PFSH Social History Social History Smoking Status: Never smoker How many cigarettes a day do you smoke? (20 cigarettes=1 Pk): 1 Relationship: Do you feel safe in your home environment?: Yes Suffered physical, verbal, emotional, or financial abuse?: No History of Abuse: No ETOH Use: Frequency: Daily Number of Amount/day: 2 POLST Patient has POLST: No Exam Exam LEFT Hip: Inspection: No erythema, swelling, bruising, right lower extremity externally rotated. Range of motion deferred due to known fracture. Neurovascular exam: 10/14 ta/gc/ehl; SILT s/s/sp/dp/t, 2+ dp Imaging: Left hip x-rays on May 14, 2024: Displaced intertrochanteric fracture. Radiology called a displaced intertrochanteric and femoral neck fracture. CT scan will be obtained for further evaluation. Assessment & Plan Assessment & Plan Assessment & Plan: 49yo F presents the emergency department 1 day after her right hip fracture from a ground-level fall. I explained to the patient this is an unusual injury for patient her age. I explained that this is a significant injury and will require operative management. The risk, benefits and alternatives of the procedure were discussed with the patient to include bleeding, infection, damage to surrounding structures, malunion, nonunion, hip stiffness, need for additional surgeries and anesthesia risk such as heart attack, stroke and . Patient understood these risks and 1 move forward with the procedure. She was consented in the emergency department. Her extremity was signed. PLAN: Orthopedic admission Internal medicine consult N.p.o. at midnight for operation of the right hip on May 15, 2024 Oral and IV pain medication Nonweightbearing right lower extremity -strict bedrest Operative management of the right hip fracture on May 15, 2024 The patient had the treatment plan explained, questions answered and seemed satisfied with the plan. There were no apparent barriers to communication. The documentation in this note may have been entered with the assistance of computer voice recognition and dictation software. Therefore, it may contain unintended errors in text, spelling, punctuation, or grammar. Remigio Lucio MD Orthopedic Surgeon
--- NOTE | 2024-05-14 19:22 | CT Report ---
PROCEDURE: CT Lower Extremity RT WO INDICATIONS: R hip fracture, ortho req TECHNIQUE: Noncontrast 3-mm axial sections acquired from the distal tibial shaft to the talar dome, with coronal and sagittal reformats. For radiation dose reduction, the following was used: automated exposure c ontrol, adjustment of mA and/or kV according to patient size. COMPARISON: None. FINDINGS: Image quality: Excellent. Bones: Mildly comminuted intertrochanteric fracture of the right proximal femur with mild varus defo rmity. No femoral acetabular joint dislocation. Slight impaction of the femoral neck fragment, diaphy sis and mild displacement of the lesser trochanter fragment. No other pelvic fractures are seen. Sacr oiliac joints and pubic symphysis remains normally aligned. Soft tissues: Intrapelvic soft tissues are normal. No free pelvic fluid. No intrapelvic hematoma. Th ere is swelling of the right quadriceps muscle and abductor muscles. No visible joint effusion. Impression: Right intertrochanteric hip fracture as described. Reviewed by: Casandra Cohn MD on 05/14/2024 7:21 PM PST Approved by: Casandra Cohn MD on 05/14/2024 7:21 PM PST Station ID: [id number]
[2024-05-14] MEDS: ONDANSETRON 4 MG/2 ML VIAL IVP STA (19:57)
[2024-05-14] MEDS ORDERED: ACETAMINOPHEN 325 MG TABLET PO PRN (20:25)
[2024-05-14] MEDS ORDERED: ONDANSETRON 4 MG/2 ML VIAL IVP PRN (20:25)
[2024-05-14] MEDS ORDERED: SODIUM CHLORIDE FLUSH 0.9% 10 ML SYRINGE IVP PRN (20:25)
[2024-05-14] MEDS ORDERED: GABAPENTIN 100 MG CAPSULE PO PRN (20:25)
[2024-05-14] MEDS ORDERED: MORPHINE 2 MG/ML CARPUJECT IVP PRN (20:25)
[2024-05-14] MEDS ORDERED: [UNRECOGNIZED DRUG - OTHER] PO PRN (20:25)
[2024-05-14] MEDS ORDERED: SCOPOLAMINE PATCH TOP PRN (20:25)
[2024-05-14] MEDS ORDERED: oxyCODONE 5 MG TABLET PO PRN (20:25)
[2024-05-14] MEDS ORDERED: OMEPRAZOLE MAGNESIUM PO PRN (20:25)
[2024-05-14] MEDS: MORPHINE 2 MG/ML CARPUJECT IVP PRN (20:50)
[2024-05-14] MEDS: SODIUM CHLORIDE FLUSH 0.9% 10 ML SYRINGE IVP PRN (20:50)
[2024-05-14] MEDS: GABAPENTIN 100 MG CAPSULE PO PRN (21:52)
[2024-05-14] MEDS: ACETAMINOPHEN 325 MG TABLET PO PRN (21:52)
[2024-05-14] MEDS: oxyCODONE 5 MG TABLET PO PRN (21:52)
[2024-05-15] MEDS: ONDANSETRON 4 MG/2 ML VIAL IVP PRN (00:31)
[2024-05-15] MEDS: SODIUM CHLORIDE FLUSH 0.9% 10 ML SYRINGE IVP SCH (00:55)
[2024-05-15] MEDS ORDERED: SODIUM CHLORIDE FLUSH 0.9% 10 ML SYRINGE IVP SCH (01:00)
[2024-05-15] MEDS: LACTATED RINGERS 1,000 ML IV SCH ×2 (01:46→14:52)
[2024-05-15] MEDS: CYCLOBENZAPRINE 10 MG TABLET PO PRN (01:46)
[2024-05-15] MEDS ORDERED: TRANEXAMIC ACID 1,000 MG in SODIUM CHLORIDE 0.9% 100ML 100 ML IV PRN (07:56)
[2024-05-15] MEDS ORDERED: NS W/20 MEQ KCL 1,000 ML IV SCH (08:00)
[2024-05-15] MEDS: PROCHLORPERAZINE 10 MG/2 ML VIAL IVP PRN (08:58)
[2024-05-15] MEDS ORDERED: LEVONORGESTREL 20 MCG/24H IUD IY SCH ×2 (09:00)
[2024-05-15] MEDS ORDERED: PANTOPRAZOLE 40 MG TABLET PO PRN (09:00)
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
[2024-05-15] MEDS: MORPHINE 2 MG/ML CARPUJECT IVP ONE (09:33)
[2024-05-15 10:24] LABS: HCG UR QUAL NEGATIVE
--- NOTE | 2024-05-15 10:39 | PHARMACY PROGRESS NOTE ---
Best Possible Medication History Admit Date and Time: 05/14/24393912 Home Medications Medication Instructions Recorded Confirmed Type magnesium 250 mg tablet 2 tab PO DAILY 12/26/19 05/15/24 History levonorgestrel (Mirena) 1 ea intrauterine .none 12/27/19 05/15/24 History acetaminophen 500 mg tablet 500 mg PO QID PRN Pain 15 days #60 05/31/21 05/15/24 Rx (Acetaminophen Extra Strength) tabs docusate sodium 100 mg capsule 100 mg PO DAILY #20 caps 05/31/21 05/15/24 Rx (Stool Softener) ondansetron 4 mg disintegrating 4 mg translingual Q6H PRN Nausea / 05/31/21 05/15/24 Rx tablet Vomiting #20 tabs scopolamine base 1 mg over 3 days 1 patch transdermal Q3D PRN nausea 03/20/24 05/15/24 Rx transdermal patch (Transderm-Scop) and vomiting #4 ea gabapentin 100 mg capsule 100 - 200 mg (1 - 2 x 100 mg) PO 05/02/24 05/15/24 Rx TID PRN pain #180 caps tizanidine 4 mg tablet 4 mg PO ONCE PRN Migraine #90 tabs 05/06/24 05/15/24 Rx clonazepam 0.5 mg tablet (Klonopin) 0.5 mg PO DAILY PRN anxiety 05/15/24 05/15/24 History erenumab-aooe 140 mg/mL 140 mg subcut .monthly 05/15/24 05/15/24 History subcutaneous auto-injector (Aimovig Autoinjector) mirtazapine 15 mg tablet 7.5 mg PO HS 05/15/24 05/15/24 History omeprazole 20 mg capsule,delayed 20 mg PO DAILY PRN heartburn 05/15/24 05/15/24 History release potassium bicarbonate-citric acid 10 meq PO DAILY PRN low potassium 05/15/24 05/15/24 History 10 mEq effervescent tablet (Effer-K) Processed by: Pharmacy Medications reviewed in ED?: No Medication History completed: Yes Patient Interview: Completed Secondary Source(s): Insurance records (unable to confirm potassium dissolving tablets as current.) [facility] Statement: As the person ultimately responsible for medication therapy, providers are able to order a medication from an existing home medication list in [employer] via the "Reconcile Routine" prior to Confirmation of that medication by landing support specialist. Such practice is discouraged except when the physician, in their clinical judgment, deems that a medical need exists for a medication without regard to previous use.
[2024-05-15] MEDS ORDERED: POTASSIUM CHLORIDE INJ 40 MEQ in SODIUM CHLORIDE 0.9% 500 ML IV ONE (11:05)
[2024-05-15] MEDS ORDERED: LIDOCAINE 1%-EPI 1:100000 20 ML MDV ONE (11:29)
[2024-05-15] MEDS ORDERED: BUPIVACAINE 0.25% PF 30 ML VIAL ONE (11:29)
[2024-05-15] MEDS ORDERED: BACITRACIN ZINC OINT 1 PACKET TOP ONE (11:29)
--- NOTE | 2024-05-15 11:35 | ANESTHESIA PROCEDURE NOTE ---
Pre-Anesthesia VS, & Labs Diagnosis Surgical Diagnosis:: right hip fracture Procedure Procedure: right hip pinning Vitals Vital Signs: Temp Pulse Resp BP Pulse Ox 36.6 C 80 18 145/97 H 97 05/15/24 08:49 05/15/24 08:49 05/15/24 08:49 05/15/24 08:49 05/15/24 08:49 NPO NPO: >8 hours Is Patient ?: No Lab Results Current Lab Results: Laboratory Tests 05/14/24 17:04: WBC 11.7 H, RBC 3.75 L, Hgb 13.9, Hct 39.9, MCV 106.4 H, MCH 37.1 H, MCHC 34.8, RDW 13.9, Plt Count 216, MPV 8.3, Neut # (Auto) 10.1 H, Lymph # (Auto) 1.0 L, [place] # (Auto) 0.5, Eos # (Auto) 0.0, Baso # (Auto) 0.0, Absolute Nucleated RBC 0.00, Nucleated RBC % 0.0, Sodium 145, Potassium 3.0 L, Chloride 102, Carbon Dioxide 24, Anion Gap 19.0 H, BUN 9, Creatinine 0.5 L, Estimated GFR (MDRD) 132, Glucose 144 H, Calcium 9.5, Total Bilirubin 1.1 H, AST 27, ALT 16, Alkaline Phosphatase 97, Total Protein 7.3, Albumin 4.6, Globulin 2.7, Albumin/Globulin Ratio 1.7 05/14/24 17:04 05/14/24 17:04 Meds/Allgy Home Medications Ambulatory Orders Medication Instructions Recorded Confirmed magnesium 250 mg tablet 2 tab PO DAILY 12/26/19 05/15/24 levonorgestrel (Mirena) 1 ea intrauterine .none 12/27/19 05/15/24 acetaminophen 500 mg tablet 500 mg PO QID PRN Pain 15 days #60 05/31/21 05/15/24 (Acetaminophen Extra Strength) tabs docusate sodium 100 mg capsule 100 mg PO DAILY #20 caps 05/31/21 05/15/24 (Stool Softener) ondansetron 4 mg disintegrating 4 mg translingual Q6H PRN Nausea / 05/31/21 05/15/24 tablet Vomiting #20 tabs scopolamine base 1 mg over 3 days 1 patch transdermal Q3D PRN nausea 03/20/24 05/15/24 transdermal patch (Transderm-Scop) and vomiting #4 ea gabapentin 100 mg capsule 100 - 200 mg (1 - 2 x 100 mg) PO 05/02/24 05/15/24 TID PRN pain #180 caps tizanidine 4 mg tablet 4 mg PO ONCE PRN Migraine #90 tabs 05/06/24 05/15/24 clonazepam 0.5 mg tablet (Klonopin) 0.5 mg PO DAILY PRN anxiety 05/15/24 05/15/24 erenumab-aooe 140 mg/mL 140 mg subcut .monthly 05/15/24 05/15/24 subcutaneous auto-injector (Aimovig Autoinjector) mirtazapine 15 mg tablet 7.5 mg PO HS 05/15/24 05/15/24 omeprazole 20 mg capsule,delayed 20 mg PO DAILY PRN heartburn 05/15/24 05/15/24 release potassium bicarbonate-citric acid 10 meq PO DAILY PRN low potassium 05/15/24 05/15/24 10 mEq effervescent tablet (Effer-K) Allergies Allergies Allergy/AdvReac Type Severity Reaction Status Date / Time shrimp Allergy Unknown Unknown Verified 05/13/24 14:09 erythromycin base Allergy Anaphylaxis Verified 05/13/24 14:09 prednisone Allergy Edema Verified 05/13/24 14:09 shellfish derived Allergy Nausea Verified 05/13/24 14:09 sumatriptan (From Imitrex) Allergy Edema Verified 05/13/24 14:09 sumatriptan succinate * Allergy Edema Verified 05/13/24 14:09 (From Imitrex) [facility] Medical History Medical History (Updated 05/15/24 @ 11:39 by Ingrid Parsons CRNA) Hyperparathyroidism (09/14/23) Social History Social History Smoking Status: Never smoker How many cigarettes a day do you smoke? (20 cigarettes=1 Pk): 1 Relationship: Level: Independent Do you feel safe in your home environment?: Yes Suffered physical, verbal, emotional, or financial abuse?: No History of Abuse: No ETOH Use: Frequency: Daily Number of Amount/day: 2 POLST Patient has POLST: No Anesthesia Exam (Expanded) Exam General: Alert and Oriented x3 Dental: WNL Mouth Opening: Greater than 4 Fingerbreadths Neck Mobility: Normal Mallampati classification: II Thyromental Distance: greater than 6 cm Respiratory: Lungs clear Cardiovascular: Regular rate Plan Problem List (1) Hyperparathyroidism: Plan Anesthesia Type: General Consent for Procedure(s) Verified and Reviewed: Yes Code Status: Attempt Resuscitation ASA Classification ASA classification: 2-Mild systemic disease Is this case an emergency?: No
[2024-05-15] MEDS ORDERED: ATROPINE ABBOJECT 1 MG/10 ML SYRINGE IVP PRN (11:41)
[2024-05-15] MEDS ORDERED: MORPHINE 2 MG/ML CARPUJECT IVP PRN (11:41)
[2024-05-15] MEDS ORDERED: ePHEDrine 50 MG/ML VIAL IVP PRN (11:41)
[2024-05-15] MEDS ORDERED: NALOXONE 0.4 MG/ML VIAL IVP PRN (11:41)
[2024-05-15] MEDS ORDERED: HYDROmorphone 0.5 MG/0.5 ML SYRINGE IVP PRN (11:41)
[2024-05-15] MEDS ORDERED: fentaNYL 100 MCG/2 ML VIAL IVP PRN (11:41)
[2024-05-15] MEDS ORDERED: METOCLOPRAMIDE 10 MG/2 ML VIAL IVP PRN (11:41)
[2024-05-15] MEDS ORDERED: ONDANSETRON 4 MG/2 ML VIAL IVP PRN (11:41)
[2024-05-15] MEDS ORDERED: ONDANSETRON 4 MG/2 ML VIAL IVP ONE (12:03)
[2024-05-15] MEDS ORDERED: oxyCODONE 5 MG TABLET PO ONE (12:03)
[2024-05-15] MEDS ORDERED: ACETAMINOPHEN 325 MG TABLET PO ONE (12:03)
[2024-05-15] MEDS ORDERED: MORPHINE 2 MG/ML CARPUJECT IVP ONE (12:03)
[2024-05-15] MEDS ORDERED: CYCLOBENZAPRINE 10 MG TABLET PO ONE (12:03)
[2024-05-15] MEDS ORDERED: MIDAZOLAM 2 MG/2 ML VIAL ONE ×2 (12:17→12:53)
[2024-05-15] MEDS ORDERED: PROPOFOL 200 MG/20 ML VIAL IVP ONE (12:17)
[2024-05-15] MEDS ORDERED: fentaNYL 100 MCG/2 ML VIAL ONE ×2 (12:17→13:25)
[2024-05-15] MEDS ORDERED: ceFAZolin 2 GM VIAL ONE (12:27)
[2024-05-15] MEDS ORDERED: CITRIC ACID PO PRN (14:17)
[2024-05-15] MEDS ORDERED: POTASSIUM BICARBONATE PO PRN (14:17)
[2024-05-15] MEDS ORDERED: HYDROmorphone 1 MG/ML CARPUJECT ONE (14:18)
[2024-05-15] MEDS ORDERED: ONDANSETRON 4 MG/2 ML VIAL ONE (14:23)
--- NOTE | 2024-05-15 14:38 | OPERATIVE REPORT ---
Operative Report General Admit Date: 05/14/24 Procedure Data: Operation Date: 05/15/24 11:45 Proposed Procedures p Hip Pinning(Right) - Remigio Lucio MD Actual Procedures p Hip Pinning(Right) - Remigio Lucio MD Pre-Op Diagnosis: HIP DISLOCATION Anesthesia Type General Case Staff Anesthesia Provider: Farheen Rojo Assisting Provider: Floyd Phipps Assisting Provider: Lauryn Terrell Assisting Provider: Philly Garcia Rep: RAMILA CASTANEDA. Case Times Procedure Start: 05/15/24 13:24 Time out: 05/15/24 13:23 Implants TRIGEN LAG SCRW 90/95MM Pre-Op Diagnosis: Right Hip Fracture Post Op Diagnosis: INOCENCIA Procedure Note Estimated Blood Loss (ml): 25 Other Other Information/Narrative: Op Note Date of Procedure: 05/15/24 Pre-Op Diagnosis: RIGHT Intertrochanteric Hip Fracture Post-Op Diagnosis: RIGHT Intertrochanteric Hip Fracture Procedure Open Reduction and Internal fixation of the RIGHT Intertrochanteric Hip Fracture Surgeon: Remigio Lucio MD Co-Surgeon: Lauryn Terrell DO and Floyd Phipps MD News Library Director in OR: JEREMY Stephen Physician News Library Director was used throughout the entirety of the case. They assisted with room set up, patient positioning, draping, retraction, reduction, fixation and closure. They were essential for the success of the case. Anesthesia Type: General EBL: 25cc Urine Output : NA Specimens Removed: None Complications: None Implants/Grafts: [employer] Trigen Intertan Cephalomedullary nail 10x38 Intertan Compression screw combination of 95/90mm 40mm Distal Elbert. Drains: No lines, drains, or airways are recorded for this episode. Findings: Unstable, displaced Intertroch Hip Fracture Narrative: The patient was taken to the OR and administered anesthetic and preoperative antibiotics. They were placed on the fracture table with the operative leg in traction boot. SCD device placed on the nonoperative leg and it was placed in 90 hip and knee flexion on the support. Using traction and appropriate rotation, the hip was reduced to near anatomic position on fluoroscopic views. Standard prep and drape was done. Incision was made in line with and 5cm proximal to the greater trochanter. The incision was carried down through skin and subcutaneous fat to the fascia. Hemostasis achieved. The guide wire was then inserted at the tip of the greater trochanter and down into the proximal femoral shaft ensuring not to enter through the fracture site. The opening reamer was then used to ream over the guidewire down to the level of the lesser trochanter, taking care to remove bone centrally and not distract the fracture. The guidewire was removed. The ball tipped guide wire was placed to the knee and the length was measured. The canal was reamed until chatter was heard and an appropriately sized nail was then placed. Through a separate incision the aiming device for the helical blade was inserted down to the lateral cortex of the femur. A guidewire was then drilled into the femoral head subchondral bone traveling centrally through the neck. It was measured and over reamed at the appropriate length. The head screw was then tapped into place. The tip to apex distance was less than 1 cm on AP and lateral views. The compression screw was placed with closure of the diastasis at the medial calcar. Separate small incision and distal locking screw was then drilled and inserted. AP and lateral fluoroscopic views confirmed satisfactory reduction and implant position. The wounds were irrigated. Fascia lauri closed with #0 Vicryl followed by skin with 2-0 Vicryl and gerard in all incisions. Sterile dressings placed. Patient transferred to recovery room bed. Patient transferred to recovery room in stable condition. Plan: Weight bearing as tolerated. Follow-up in 2 weeks for wound check and staple removal. DVT prophylaxis with 6 weeks of aspirin. Physical therapy. Remigio Lucio MD
[2024-05-15] MEDS: POTASSIUM CHLOR 10 MEQ/100 ML 10 MEQ/100 ML BAG IV SCH ×2 (15:00→17:00)
[2024-05-15] MEDS: ceFAZolin (2G) 2 GM in SODIUM CHLORIDE 0.9% MINIBAG 100 ML IV ONE (15:49)
[2024-05-15] MEDS: POTASSIUM CHLORIDE 20 MEQ TABLET PO ONE (16:00)
--- NOTE | 2024-05-15 16:02 | ANESTHESIA POST OP EVALUATION ---
Anesthesia Post Eval Post Anesthesia Eval Vitals: Last Vital Signs Temp 36.7 C 05/15/24 15:45 Pulse 102 H 05/15/24 15:45 Resp 18 05/15/24 15:45 BP 153/116 H 05/15/24 15:45 Pulse Ox 97 05/15/24 15:45 CV Function Including HR & BP: Stable Pain Control: Satisfactory Nausea & Vomiting: Negative Mental Status: Baseline Respiratory Status: Airway Patent Hydration Status: Satisfactory Anesthesia Complications: None
[2024-05-15] MEDS: clonazePAM 0.5 MG TABLET PO PRN (17:40)
[2024-05-15] MEDS: PANTOPRAZOLE 40 MG TABLET PO SCH (17:40)
[2024-05-15] MEDS: ceFAZolin (2G) 2 GM in SODIUM CHLORIDE 0.9% MINIBAG 100 ML IV SCH (19:59)
[2024-05-15] MEDS: ACETAMINOPHEN 325 MG TABLET PO SCH (20:50)
[2024-05-15] MEDS: DOCUSATE SODIUM 100 MG CAPSULE PO SCH (20:50)
[2024-05-15] MEDS: ASPIRIN EC 81 MG TABLET PO SCH (20:50)
[2024-05-15] MEDS: MIRTAZAPINE 15 MG TABLET PO SCH (21:24)
[2024-05-15] MEDS: GABAPENTIN 100 MG CAPSULE PO PRN (22:22)
[2024-05-16] MEDS: LORazepam 2 MG/ML VIAL IVP PRN (02:53)
[2024-05-16 06:21] LABS: HGB - HEMOGLOBIN 9.2 g/dL (12.0-16.0); MEAN CORPUSCULAR HEMOGLOBIN 37.6 pg (27.0-31.0); MEAN CORPUSCULAR HGB CONC 34.1 g/dL (32.0-36.0); MEAN CORPUSCULAR VOLUME 110.2 fL (81.0-99.0); RED BLOOD COUNT 2.45 10^6/uL (4.20-5.40); RED CELL DISTRIBUTION WIDTH 13.6 % (12.0-15.0); WHITE BLOOD COUNT 6.7 x10^3/uL (4.8-10.8)
[2024-05-16 06:40] LABS: CALCIUM 8.9 mg/dL (8.5-10.3); CREATININE 0.6 mg/dL (0.6-1.3); MAGNESIUM 1.4 mg/dL (1.7-2.3); POTASSIUM 3.4 mmol/L (3.5-4.5)
[2024-05-16] MEDS: POTASSIUM CHLORIDE 10 MEQ CAPSULE PO SCH (07:46)
[2024-05-16] MEDS: diazePAM INJ 5 MG/ML SYRINGE IVP SCH (07:47)
[2024-05-16] MEDS: MAGNESIUM OXIDE 400 MG TABLET PO SCH (07:47)
[2024-05-16] MEDS ORDERED: diazePAM 5 MG TABLET PO SCH (08:00)
[2024-05-16] MEDS: LORazepam 2 MG/ML VIAL IVP STA ×2 (10:18→11:51)
--- NOTE | 2024-05-16 11:21 | XRAY Report ---
PROCEDURE: XR Femur 2+V RT INDICATIONS: post operative imaging, 2 view right hip TECHNIQUE: 2 views of the femur were acquired. COMPARISON: Right lower extremity CT 05/14/2024 FINDINGS: Bones: Postsurgical changes are seen from internal fixation of the previously seen proximal femoral fracture with an intramedullary dany. Distal posterior and proximal screws are present. Lesser trochan ter fracture fragment remains mildly displaced. Soft tissues: No suspicious soft tissue calcifications. IMPRESSION: Postsurgical changes from internal fixation of the right proximal femoral fracture with improved alig nment. Reviewed by: Alo Sebastian MD on 05/16/2024 11:20 AM PST Approved by: Alo Sebastian MD on 05/16/2024 11:20 AM PST Station ID: [id number]
--- NOTE | 2024-05-16 11:52 | XRAY Report ---
PROCEDURE: FL OR C-Arm Procedure INDICATIONS: Surgical Procedure FLUORO TIME: 0.9 MIN COMPARISON: None. FINDINGS/IMPRESSION: Intraoperative plain films utilized for a right surgical fixation, with intramedullary dany and intert rochanteric screw fixation with anatomic alignment. Reviewed by: Luca Dahl MD on 05/16/2024 11:51 AM [facility] Approved by: Luca Dahl MD on 05/16/2024 11:51 AM [facility] Station ID: [id number]
--- NOTE | 2024-05-16 13:15 | PROVIDER PROGRESS NOTE ---
Subjective Subjective Subjective: She had surgery completed yesterday, and had a right hip pinning done with the TriGen leg screw. Overnight, patient was altered, agitated, and not ready orientable overnight. She was started on CIWA scale, and received doses of Ativan with minimal improvement. This morning she started on Valium, given extra doses of Ativan with some mild improvement. Will continue to monitor her closely for any changes. Of note, her mother did come to the bedside. She states she found a liter bottle of vodka near her bedside. Plan is to continue to monitor closely; if her CIWA's remain greater than 20, we will transfer to the ICU for closer monitoring, and possible Precedex drip. Current Medications Current Medications Current Medications: Current Medications Generic Name Dose Route Start Last Admin Trade Name Freq PRN Reason Stop Dose Admin Acetaminophen 650 mg 05/15/24 21:00 05/16/24 12:10 Acetaminophen 325 Mg Tablet PO 650 mg Q4HR MEI Administration Aspirin 81 mg 05/15/24 21:00 05/16/24 07:46 Aspirin Ec 81 Mg Tablet PO 81 mg BID MEI Administration Diazepam 5 mg 05/16/24 08:00 05/16/24 07:47 Diazepam Inj 5 Mg/Ml Syringe IVP 5 mg TID MEI Administration Docusate Sodium 100 mg 05/15/24 21:00 05/16/24 07:49 Docusate Sodium 100 Mg Capsule PO 100 mg BID MEI Administration Lactated Ringer's 1,000 mls @ 100 mls/hr 05/15/24 01:00 05/16/24 10:04 Lr IV 100 mls/hr .Q10H MEI Administration Lorazepam 1 mg 05/16/24 02:13 05/16/24 09:00 Lorazepam 2 Mg/Ml Vial IVP 1 mg Q30M PRN Administration CIWA >8 Protocol Magnesium Oxide 400 mg 05/16/24 08:00 05/16/24 07:47 Magnesium Oxide 400 Mg Tablet PO 400 mg DAILYWM MEI Administration Mirtazapine 7.5 mg 05/15/24 21:00 05/15/24 21:24 Mirtazapine 15 Mg Tablet PO 7.5 mg HS MEI Administration Morphine Sulfate 2 mg 05/14/24 20:35 05/16/24 06:31 Morphine 2 Mg/Ml Carpuject IVP 2 mg Q2HR PRN Administration Pain 8 to 10 Ondansetron HCl 4 mg 05/14/24 20:35 05/15/24 07:09 Ondansetron 4 Mg/2 Ml Vial IVP 4 mg Q6HR PRN Administration Nausea / Vomiting Oxycodone HCl 5 mg 05/14/24 20:35 05/16/24 02:56 Oxycodone 5 Mg Tablet PO 5 mg Q4HR PRN Administration Pain 5 to 7 Pantoprazole Sodium 40 mg 05/15/24 18:00 05/16/24 06:30 Pantoprazole 40 Mg Tablet PO 40 mg QDAC MEI Administration Potassium Chloride 10 meq 05/16/24 08:00 05/16/24 07:46 Potassium Chloride 10 Meq Capsule PO 10 meq DAILYWM MEI Administration Prochlorperazine Edisylate 10 mg 05/15/24 08:17 05/15/24 17:40 Prochlorperazine 10 Mg/2 Ml Vial IVP 10 mg Q6HR PRN Administration Nausea / Vomiting Scopolamine HBr 1 patch 05/14/24 20:35 Scopolamine Patch TOP Q3D PRN nausea and vomiting Sodium Chloride 10 ml 05/14/24 20:35 05/15/24 22:22 Sodium Chloride Flush 0.9% 10 Ml Syringe IVP 10 ml PRN PRN Administration NEEDED PER PROVIDER ORDERS Sodium Chloride 10 ml 05/15/24 01:00 05/16/24 07:47 Sodium Chloride Flush 0.9% 10 Ml Syringe IVP 10 ml 0100,0900,1700 MEI Administration Objective Vital Signs/Intake & Output Reviewed Vital Signs: Yes Vital Signs: Vital Signs x48h Temp Pulse Resp BP Pulse Ox 05/16/24 08:52 98.1 F 87 18 144/99 H 94 Intake & Output: Intake & Output 05/14/24 05/15/24 05/16/24 05/17/24 05:59 05:59 05:59 05:59 Intake Total 1650 / 1650 4143 / 4143 1000 / 1000 Output Total 1700 / 1700 2 / 2 Balance 1650 / 1650 2443 / 2443 998 / 998 Weight (kg) 62 kg Objective General Appearance: positive Moderate distress and Anxious Eyes Bilateral: positive Normal inspection, PERRL and EOMI ENT: positive ENT inspection nml, Pharynx nml and No signs of dehydration Neck: positive Nml inspection and Thyroid nml Respiratory: positive Chest non-tender and No respiratory distress Cardiovascular: positive Regular rate & rhythm and No murmur Abdomen: positive Non-tender, No organomegaly, Nml bowel sounds and No distention; negative Hepatomegaly or Splenomegaly Back: positive Nml inspection; negative CVA tenderness (R) or CVA tenderness (L) Skin: positive Color nml, No rash and Dry Extremities: negative Full ROM (limited ROM in R leg due to recent surgery) Neurologic/Psychiatric: negative Mood/affect nml (agitated, altered, actively hallucinating), Disoriented to place or Disoriented to time Lab Results 05/16/24 05:30 05/16/24 05:30 Other Labs: Lab Results x24hrs 05/16/24 Range/Units 05:30 WBC 6.7 (4.8-10.8) x10^3/uL RBC 2.45 L (4.20-5.40) 10^6/uL Hgb 9.2 L (12.0-16.0) g/dL Hct 27.0 L (37.0-47.0) % MCV 110.2 H (81.0-99.0) fL MCH 37.6 H (27.0-31.0) pg MCHC 34.1 (32.0-36.0) g/dL RDW 13.6 (12.0-15.0) % Plt Count 111 L (130-450) 10^3/uL MPV 10.0 (7.9-10.8) fL Sodium 137 (135-145) mmol/L Potassium 3.4 L (3.5-4.5) mmol/L Chloride 102 (101-111) mmol/L Carbon Dioxide 28 (21-32) mmol/L Anion Gap 7.0 (6-13) BUN 7 (6-20) mg/dL Creatinine 0.6 (0.6-1.3) mg/dL Estimated GFR (MDRD) 107 (>89) Glucose 96 (74-104) mg/dL Calcium 8.9 (8.5-10.3) mg/dL Magnesium 1.4 L (1.7-2.3) mg/dL Diagnostic Imaging Diagnostic Imaging Results: positive Final report reviewed Assessment/Plan Problem List (1) Alcohol withdrawal delirium, acute, hyperactive: Impression: Patient in active alcohol withdrawal. Mother states she found a liter of vodka by her bedside. Patient still maintains that she only drinks a few glasses of wine at night. CIWAs have been ranging from 15-20. Scheduled Valium added 5 mg 3 times daily, IV piggyback. Continue Ativan as needed. If patient continues to worsen, we will transfer her to the ICU, and possibly start a Precedex drip. (2) Fracture of hip, right, closed: Impression: Patient presented after ground-level fall. Had increasing pain of her right hip. Lower extremity CT shows right intertrochanteric hip fracture. Completed operative management of right hip fracture today. Will likely need PT/OT after the procedure. Continue oral and IV pain medication as needed. Qualifiers: Encounter type: initial encounter Qualified Code(s): S72.001A - Fracture of unspecified part of neck of right femur, initial encounter for closed fracture (3) Migraine: Impression: Continue monthly injections in the outpatient setting of [facility]. Qualifiers: Intractability: not intractable Migraine type: unspecified Status migrainosus presence: without status migrainosus Qualified Code(s): G43.909 - Migraine, unspecified, not intractable, without status migrainosus (4) Cyclical vomiting syndrome: Impression: Continue Zofran as needed, one-time Compazine given due to persistent nausea. Continue scopolamine patch. Patient has had EGD done the past which showed esophagitis. Gastric emptying study was normal per patient. Colonoscopy showed some polyps. Continue to follow-up with GI in the outpatient setting. (5) Alcohol dependence: Impression: Inconsistent history about current alcohol use. Continue to monitor for alcohol withdrawal symptoms. May need CIWA monitoring and detoxification prior to discharge home. Qualifiers: Substance use status: unspecified alcohol-induced disorder Qualified Code(s): F10.29 - Alcohol dependence with unspecified alcohol-induced disorder (6) Seizure disorder: Impression: Remote history of seizure disorder in 2006 requiring Depakote. Has not taken this since, and has had no seizures since.
--- NOTE | 2024-05-16 14:51 | PROVIDER PROGRESS NOTE ---
Subjective General Admit Date: 05/14/24 Procedure Date: 05/15/24 Post Op Days: 1 Procedure Performed: ORIF Right Hip IM NAIL Other Other Information/Narrative: 49-year-old female is postoperative day 1 from open reduction internal fixation of the right hip with an intramedullary nail and hip screws by Dr. Lucio at [facility]. Today she is oriented to self only and confused. CIWA protocol initiated overnight. She reports adequate pain control but is minimally interactive on exam Review of Systems Status of ROS: See HPI Exam Exam Well-developed, well-nourished, 49-year-old female, confused and lethargic Dressings about the right hip are dry and intact without drainage or ecchymosis. Neurovascular intact to the right lower extremity Impression/Plan Problem List (1) Alcohol withdrawal delirium, acute, hyperactive: (2) Fracture of hip, right, closed: Plan: 49-year-old female postoperative day 1 from right hip open reduction internal fixation with IM nail and hip screws. Her ability to participate in physical therapy is limited by alcohol withdrawal. Verbal conversation with patient is limited by alcohol withdrawal however she reports appropriate pain control. Patient has elevated CIWA scores. Internal medicine will initiate transfer to ICU for continued management of alcohol withdrawal. Per verbal conversation with Dr. Whitaker patient will be transferred to the internal medicine service and orthopedics will follow as needed. Plan: - Weight bearing as tolerated to right lower extremity with walker when able - Awaiting physical therapy and occupational therapy evaluation - Continue pain management with IV morphine and tylenol with oxycodone as needed - DVT prophylaxis with aspirin 81 mg twice daily for 6 weeks - Dressing to remain in place until follow up in orthopedic clinic - Appreciate expertise of internal medicine Qualifiers: Encounter type: initial encounter Qualified Code(s): S72.001A - Fracture of unspecified part of neck of right femur, initial encounter for closed fracture (3) Migraine: Qualifiers: Intractability: not intractable Migraine type: unspecified Status migrainosus presence: without status migrainosus Qualified Code(s): G43.909 - Migraine, unspecified, not intractable, without status migrainosus (4) Cyclical vomiting syndrome: (5) Alcohol dependence: Qualifiers: Substance use status: unspecified alcohol-induced disorder Qualified Code(s): F10.29 - Alcohol dependence with unspecified alcohol-induced disorder (6) Seizure disorder:
[2024-05-16] MEDS: DEXMEDETOMIDINE 400 MCG/100 ML 100 ML IV PRN (16:10)
[2024-05-16] MEDS: THIAMINE 100 MG/1 ML 2 ML MDV IVP SCH (21:30)
[2024-05-17 05:00] LABS: HCT - HEMATOCRIT 22.3 % (37.0-47.0); HGB - HEMOGLOBIN 7.7 g/dL (12.0-16.0); MEAN CORPUSCULAR HEMOGLOBIN 38.1 pg (27.0-31.0); MEAN CORPUSCULAR HGB CONC 34.5 g/dL (32.0-36.0); MEAN CORPUSCULAR VOLUME 110.4 fL (81.0-99.0); MEAN PLATELET VOLUME 9.8 fL (7.9-10.8); RED BLOOD COUNT 2.02 10^6/uL (4.20-5.40); RED CELL DISTRIBUTION WIDTH 13.5 % (12.0-15.0); WHITE BLOOD COUNT 4.5 x10^3/uL (4.8-10.8)
[2024-05-17 05:04] LABS: CALCIUM, IONIZED 1.15 mmol/L (1.15-1.33); VBG PH 7.454 (7.31-7.41)
[2024-05-17 05:16] LABS: CALCIUM 8.7 mg/dL (8.5-10.3); CREATININE 0.5 mg/dL (0.6-1.3); MAGNESIUM 1.8 mg/dL (1.7-2.3); POTASSIUM 3.2 mmol/L (3.5-4.5)
[2024-05-17] MEDS: SCOPOLAMINE PATCH TOP PRN (06:05)
[2024-05-17] MEDS: POTASSIUM CHLOR 10 MEQ/100 ML 10 MEQ/100 ML BAG IV SCH (06:31)
[2024-05-17] MEDS: GABAPENTIN 100 MG CAPSULE PO SCH (09:05)
[2024-05-17] MEDS: PRENATAL VITAMIN TABLET PO SCH (09:05)
--- NOTE | 2024-05-17 09:16 | PROVIDER PROGRESS NOTE ---
Subjective Subjective Subjective: Yesterday, patient was transferred to the ICU for worsening alcohol withdrawals. Her CIWA's are consistently greater than 20. She was started on Precedex drip, as well as scheduled Valium, and Ativan as needed. This morning, she is much improved. She is alert and oriented x 3. She is confused at times. She states that she can go months without drinking, and then has episodes where she is drinking almost daily. Of note, her mother did find a liter of vodka bottle underneath her bed prior to admission. She was spoken with about the planwill continue to wean her Valium, stop the Precedex, transfer out of the ICU. She is willing to work with PT/OT today, but does not want to go to a rehab facility; she prefers rehab at home. Likely discharge tomorrow. Current Medications Current Medications Current Medications: Current Medications Generic Name Dose Route Start Last Admin Trade Name Freq PRN Reason Stop Dose Admin Acetaminophen 650 mg 05/15/24 21:00 05/17/24 08:10 Acetaminophen 325 Mg Tablet PO 650 mg Q4HR MEI Administration Aspirin 81 mg 05/15/24 21:00 05/17/24 08:09 Aspirin Ec 81 Mg Tablet PO 81 mg BID MEI Administration Diazepam 5 mg 05/17/24 21:00 Diazepam 5 Mg Tablet PO BID MEI Docusate Sodium 100 mg 05/15/24 21:00 05/17/24 08:09 Docusate Sodium 100 Mg Capsule PO 100 mg BID MEI Administration Gabapentin 100 mg 05/17/24 08:50 05/17/24 09:05 Gabapentin 100 Mg Capsule PO 100 mg TID MEI Administration Lactated Ringer's 1,000 mls @ 100 mls/hr 05/15/24 01:00 05/17/24 04:24 Lr IV 100 mls/hr .Q10H MEI Administration Potassium Chloride 10 meq in 100 mls @ 100 mls/hr 05/17/24 06:00 05/17/24 09:07 Potassium Chloride IV 05/17/24 09:59 100 mls/hr Q1H MEI Administration Protocol Lorazepam 1 mg 05/16/24 02:13 05/16/24 17:13 Lorazepam 2 Mg/Ml Vial IVP 1 mg Q30M PRN Administration CIWA >8 Protocol Magnesium Oxide 400 mg 05/16/24 08:00 05/17/24 08:10 Magnesium Oxide 400 Mg Tablet PO 400 mg DAILYWM MEI Administration Mirtazapine 7.5 mg 05/15/24 21:00 05/16/24 21:08 Mirtazapine 15 Mg Tablet PO 7.5 mg HS MEI Administration Morphine Sulfate 2 mg 05/14/24 20:35 05/16/24 06:31 Morphine 2 Mg/Ml Carpuject IVP 2 mg Q2HR PRN Administration Pain 8 to 10 Ondansetron HCl 4 mg 05/14/24 20:35 05/15/24 07:09 Ondansetron 4 Mg/2 Ml Vial IVP 4 mg Q6HR PRN Administration Nausea / Vomiting Oxycodone HCl 5 mg 05/14/24 20:35 05/17/24 02:22 Oxycodone 5 Mg Tablet PO 5 mg Q4HR PRN Administration Pain 5 to 7 Pantoprazole Sodium 40 mg 05/15/24 18:00 05/17/24 06:08 Pantoprazole 40 Mg Tablet PO 40 mg QDAC MEI Administration Potassium Chloride 10 meq 05/16/24 08:00 05/17/24 08:10 Potassium Chloride 10 Meq Capsule PO 10 meq DAILYWM EMI Administration Multivit/Folic Acid/Iron 1 tab 05/17/24 09:00 05/17/24 09:05 Vitamin Tablet PO 1 tab DAILYWM MEI Administration Prochlorperazine Edisylate 10 mg 05/15/24 08:17 05/16/24 19:54 Prochlorperazine 10 Mg/2 Ml Vial IVP 10 mg Q6HR PRN Administration Nausea / Vomiting Scopolamine HBr 1 patch 05/14/24 20:35 05/17/24 06:05 Scopolamine Patch TOP 1 patch Q3D PRN Administration nausea and vomiting Sodium Chloride 10 ml 05/14/24 20:35 05/15/24 22:22 Sodium Chloride Flush 0.9% 10 Ml Syringe IVP 10 ml PRN PRN Administration NEEDED PER PROVIDER ORDERS Sodium Chloride 10 ml 05/15/24 01:00 05/17/24 08:10 Sodium Chloride Flush 0.9% 10 Ml Syringe IVP 10 ml 0100,0900,1700 MEI Administration Thiamine HCl 500 mg 05/16/24 22:00 05/17/24 05:59 Thiamine 100 Mg/1 Ml 2 Ml Mdv IVP 12/07/24 14:01 500 mg TID MEI Administration Objective Vital Signs/Intake & Output Reviewed Vital Signs: Yes Vital Signs: Vital Signs x48h Temp Pulse Resp BP Pulse Ox 05/17/24 08:00 98.3 F 81 17 112/86 96 05/17/24 07:00 73 25 H 131/96 H 96 05/17/24 06:00 72 26 H 141/98 H 96 05/17/24 05:00 74 29 H 140/97 H 95 05/17/24 04:00 287 H 28 H 133/92 H 95 05/17/24 03:00 74 27 H 130/97 H 96 05/17/24 02:00 79 15 128/85 96 Intake & Output: Intake & Output 05/15/24 05/16/24 05/17/24 05/18/24 05:59 05:59 05:59 05:59 Intake Total 1650 / 1650 4143 / 4143 3312 / 3312 209 / 209 Output Total 1700 / 1700 2 / 2 900 / 900 Balance 1650 / 1650 2443 / 2443 3310 / 3310 -691 / -691 Weight (kg) 62 kg Objective General Appearance: positive No acute distress, Alert and Anxious Eyes Bilateral: positive Normal inspection, PERRL and EOMI ENT: positive ENT inspection nml, Pharynx nml and No signs of dehydration Neck: positive Nml inspection and Thyroid nml Respiratory: positive Chest non-tender and No respiratory distress Cardiovascular: positive Regular rate & rhythm and No murmur Abdomen: positive Non-tender, No organomegaly, Nml bowel sounds and No distention; negative Hepatomegaly or Splenomegaly Back: positive Nml inspection; negative CVA tenderness (R) or CVA tenderness (L) Skin: positive Color nml, No rash and Dry Extremities: negative Full ROM (limited ROM in R leg due to recent surgery) Neurologic/Psychiatric: positive Mood/affect nml (agitated, altered, actively hallucinating) and Disoriented to time Lab Results 05/17/24 04:49 05/17/24 04:49 Other Labs: Lab Results x24hrs 05/17/24 05/16/24 05/16/24 Range/Units 04:49 15:30 05:30 WBC 4.5 L (4.8-10.8) x10^3/uL RBC 2.02 L (4.20-5.40) 10^6/uL Hgb 7.7 L (12.0-16.0) g/dL Hct 22.3 L (37.0-47.0) % MCV 110.4 H (81.0-99.0) fL MCH 38.1 H (27.0-31.0) pg MCHC 34.5 (32.0-36.0) g/dL RDW 13.5 (12.0-15.0) % Plt Count 88 L (130-450) 10^3/uL MPV 9.8 (7.9-10.8) fL VBG pH 7.454 H (7.31-7.41) Ionized Calcium 1.15 (1.15-1.33) mmol/L Sodium 137 (135-145) mmol/L Potassium 3.2 L (3.5-4.5) mmol/L Chloride 104 (101-111) mmol/L Carbon Dioxide 24 (21-32) mmol/L Anion Gap 9.0 (6-13) BUN 7 (6-20) mg/dL Creatinine 0.5 L (0.6-1.3) mg/dL Estimated GFR (MDRD) 132 (>89) Glucose 118 H (74-104) mg/dL Calcium 8.7 (8.5-10.3) mg/dL Phosphorus 2.6 (2.5-5.0) mg/dL Magnesium 1.8 (1.7-2.3) mg/dL Vitamin B12 212 (180-914) pg/mL Folate 2.8 L (5.90 - >24.8) ng/mL Nasal Screen MRSA (PCR) NEGATIVE (NEGATIVE) Diagnostic Imaging Diagnostic Imaging Results: positive Final report reviewed Assessment/Plan Problem List (1) Alcohol withdrawal delirium, acute, hyperactive: Impression: Patient with worsening alcohol withdrawal yesterday requiring transfer to the ICU, Precedex drip, scheduled Valium. This morning, she is much improved. Continue oral Valium 5 mg twice a day; down titrated from 5 mg IV piggyback Valium 3 times a day. Precedex stopped. Continue Ativan as needed. Was also started on high-dose IV thiamine 500 mg 3 times a day for 2 days for possible Warnicke's. She did have some confabulations yesterday. Continue vitamin with folic acid. Continue Ativan as needed. (2) Anemia: Impression: Folate levels low, continue replacement. Iron, TIBC, ferritin, iron saturation ordered, pending. Chronically low; around baseline at this time. Qualifiers: Anemia type: unspecified type Qualified Code(s): D64.9 - Anemia, unspecified (3) Fracture of hip, right, closed: Impression: Patient presented after ground-level fall. Had increasing pain of her right hip. Lower extremity CT shows right intertrochanteric hip fracture. Completed operative management of right hip fracture today. PT/OT ordered. Continue oral and IV pain medication as needed. Qualifiers: Encounter type: initial encounter Qualified Code(s): S72.001A - Fracture of unspecified part of neck of right femur, initial encounter for closed fracture (4) Migraine: Impression: Continue monthly injections in the outpatient setting of [facility]. Qualifiers: Intractability: not intractable Migraine type: unspecified Status migrainosus presence: without status migrainosus Qualified Code(s): G43.909 - Migraine, unspecified, not intractable, without status migrainosus (5) Cyclical vomiting syndrome: Impression: Continue Zofran as needed, one-time Compazine given due to persistent nausea. Continue scopolamine patch. Patient has had EGD done the past which showed esophagitis. Gastric emptying study was normal per patient. Colonoscopy showed some polyps. Continue to follow-up with GI in the outpatient setting. (6) Alcohol dependence: Impression: Inconsistent history about current alcohol use. Continue treatment for alcohol withdrawal as stated above. Qualifiers: Substance use status: unspecified alcohol-induced disorder Qualified Code(s): F10.29 - Alcohol dependence with unspecified alcohol-induced disorder (7) Seizure disorder: Impression: Remote history of seizure disorder in 2006 requiring Depakote. Has not taken this since, and has had no seizures since.
[2024-05-17 09:37] LABS: % IRON SATURATION 12 % (20-50); IRON 27 ug/dL (50-212); TOTAL IRON BINDING CAPACITY 221 ug/dL (250-450); TRANSFERRIN 158 mg/dL (203-362)
[2024-05-17] MEDS: FOLIC ACID 1 MG TABLET PO SCH (10:42)
[2024-05-17] MEDS: CYANOCOBALAMIN 500 MCG TABLET PO SCH (10:42)
--- NOTE | 2024-05-17 11:38 | POST OP PROGRESS NOTE ---
Subjective General Admit Date: 05/14/24 Procedure Date: 05/15/24 Post Op Days: 2 Procedure Performed: ORIF Right Hip IM NAIL Other Other Information/Narrative: 49-year-old female is postoperative day 2 from open reduction internal fixation of the right hip with an intramedullary nail and hip screws by Dr. Lucio at [facility]. She is doing well today and denies nausea, emesis, chest pain, fever, chills and shortness of breath. She is alert and interactive. She was awaiting physical therapy during my evaluation and her mother was at bedside. Pain is controlled with current pain regimen She is hopeful to return home Ortho Surgical Progress Note Problem List Problem List: 49-year-old female postoperative day 2 from right hip open reduction internal fixation with IM nail and hip screws. Her cognitive status has improved today and her pain is well controlled. She is awaiting initial evaluation by physical therapy and occupational therapy but is hopeful to discharge to home. Her CIWA scores are improving and she may transition out of the ICU today. ORIF Right Hip: - Weight bearing as tolerated to right lower extremity with walker when able - Awaiting physical therapy and occupational therapy evaluation with goal to discharge to home - Continue pain management with IV morphine and tylenol with oxycodone as needed - DVT prophylaxis with aspirin 81 mg twice daily for 6 weeks - Sutures and dressings to remain in place until follow up in orthopedic clinic - Follow up with orthopedic clinic Dr Lucio 2 weeks from date of surgery. Call [phone] to schedule appointment. - Pain management at discharge per primary internal medicine team. Review of Systems Status of ROS: See HPI Exam Exam Well-developed, well-nourished, 49-year-old female, alert, no acute distress Dressings about the right hip are dry and intact. Drainage about 1.5 cm in diameter on the most proximal dressing about the right hip. No drainage on the two distal dressings. No erythema or hematoma. Neurovascular intact to the right lower extremity
--- NOTE | 2024-05-17 13:42 | OT Plan of Care ---
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 Recent fall resulting in L wrist sprain negative imaging for acute fx. Presents in ~4wk wear of L wrist spica splint. Complex history of fractures and spinal surgeries most recently in Jun 2023. Seen in ICU with PT 2/2 medical complexity. WBAT R LE. A&Ox4, follows all commands appropriately. Pt performed supine to sit MOD A x2, sit to stand MAX Ax2 using 2WW- attempted forward and lateral steps to HOB MAX AX2, unable to initiate steps at this time. Squat Pivot tx bed to chair MAX Ax2 with heavy cues for technique. Currently pt is MOD-MAX A ADL'. Overall presents with decreased strength, endurance, functional mobility and ADL status. Will benefit from cont OT services during acute stay. Rec d/c to SNF at this time for further progression of indp and safety. -Activities of Daily Living Improve Upper Extremity Dressing to:: Modified Independent Improve Lower Extremity Dressing to:: Modified Independent Improve Grooming/Hygiene to:: Modified Independent Improve Bathing to:: Modified Independent Improve Toileting to:: Modified Independent OT Inpatient Plan PLAN Treatment Frequency: 1x/day Duration: Until goals are met -Discharge Recommendations Discharge Location: [facility] Facility Recommended Equipment: Raised Toilet Seat and Commode Transport Needs at Discharge: [facility]
--- NOTE | 2024-05-17 14:26 | PT Plan of Care ---
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 Pt lives in multistory home with her mother "Veronique" and is indep to [facility] at baseline. Stairs in home but pt mostly set up for main level living. Extensive med/surgical history including 2023 lumbar laminectomy and approx 9 fractures. Upon PT eval today, pt reports moderate pain but willing to work with PT/OT. Hypotensive but vitals otherwise WNL. Supine to sit EOB with modAx1-2, STS w/ modAx2 and FWW. Unable to progress to stepping in place d/t weakness, pain, and fear of falling. Pt required maxAx2 for stand pivot transfer to b/s chair. Pt will benefit from continued PT in acute setting to improve confidence with mobility and progress WBing tolerance. When medically clear, PT rec dc to SNF as pt is far below baseline and requires 2 person assist for safety at this time. GOALS Improve supine to sit to:: Modified Independent Improve sit to stand to:: Minimal Assist Improve pivot transfer ability to:: Minimal Assist Improve sit to supine to:: Minimal Assist Improve gait ability to:: Min A Advance Assistive Device to:: Front Wheeled Walker Increase distance walked to (in feet):: 50 Improve Sitting Balance to:: Good PLAN Frequency: 1-2x/day Duration: Until goals are met DISCHARGE RECOMMENDATIONS Discharge Location: [facility] Facility Support/Services Needed: With assist DC Equipment Recommended: Front wheeled walker Other Discharge Equipment: may need FWW Transport Needs at Discharge: B.L.S Other: BLS d/t recent fx, surgery, and inability to stand
[2024-05-17 15:29] LABS: MAGNESIUM 1.6 mg/dL (1.7-2.3); POTASSIUM 3.6 mmol/L (3.5-4.5)
[2024-05-17] MEDS: diazePAM 5 MG TABLET PO SCH (20:49)
[2024-05-18 05:36] LABS: HCT - HEMATOCRIT 21.5 % (37.0-47.0); HGB - HEMOGLOBIN 7.4 g/dL (12.0-16.0); MEAN CORPUSCULAR HEMOGLOBIN 38.5 pg (27.0-31.0); MEAN CORPUSCULAR HGB CONC 34.4 g/dL (32.0-36.0); MEAN PLATELET VOLUME 9.6 fL (7.9-10.8); RED BLOOD COUNT 1.92 10^6/uL (4.20-5.40); RED CELL DISTRIBUTION WIDTH 13.9 % (12.0-15.0); WHITE BLOOD COUNT 5.3 x10^3/uL (4.8-10.8)
[2024-05-18 05:50] LABS: CALCIUM 8.8 mg/dL (8.5-10.3); CREATININE 0.5 mg/dL (0.6-1.3); MAGNESIUM 1.7 mg/dL (1.7-2.3); POTASSIUM 3.4 mmol/L (3.5-4.5)
[2024-05-18 06:45] VITALS: O2SAT 98
[2024-05-18] MEDS: diazePAM 5 MG TABLET PO ONE (08:18)
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
[2024-05-18] MEDS: clonazePAM 0.5 MG TABLET PO PRN (11:14)
--- NOTE | 2024-05-18 12:39 | POST OP PROGRESS NOTE ---
Subjective General Admit Date: 05/14/24 Procedure Date: 05/15/24 Post Op Days: 3 Procedure Performed: ORIF Right Hip IM NAIL Other Other Information/Narrative: General Admit Date: 05/14/24 Procedure Date: 05/15/24 Post Op Days: 3 Procedure Performed: ORIF Right Hip IM NAIL Other Other Information/Narrative: 49-year-old female is postoperative day 3 from open reduction internal fixation of the right hip with an intramedullary nail and hip screws by Dr. Lucio at [facility]. She is doing well today and denies nausea, emesis, chest pain, fever, chills and shortness of breath. She is alert and interactive. She ambulated from her bed to the hallway today with her walker and is about to be discharged home. Pain is controlled with current pain regimen s/p ORIF Right Hip: - Weight bearing as tolerated to right lower extremity with walker - DVT prophylaxis with aspirin 81 mg twice daily for 6 weeks - Sutures and dressings to remain in place until follow up in orthopedic clinic - Follow up with orthopedic clinic Dr Lucio 2 weeks from date of surgery. Call [phone] to schedule appointment. - Pain management at discharge per primary internal medicine team. Review of Systems Status of ROS: See HPI Exam Exam Well-developed, well-nourished, 49-year-old female, alert, no acute distress Fires TA/GS/EHL/FHL. SILT s/s/t/dp/sp Ortho Surgical Progress Note Problem List Discharge Instructions: * Always ambulate with front wheeled walker until instructed otherwise by your surgeon. Please refer to the booklet provided at [facility] for instructions for ambulation. You can weight-bear as tolerated on the affected extremity. * Avoid crossing your legs when sitting in low chairs to reduce chance of hip dislocation * Follow the pre-operatively agreed upon pain regimen described in the [facility] booklet. As a reminder, the discussed medications include using acetam inophen, ibuprofen, oxycodone and tramadol. * Ice area to decrease pain and swelling * Take Aspirin 81 mg twice daily for 6 weeks for blood clot prevention * Leave dressing in place until follow up in office. You can shower with the dressing in place if it is kept dry and neat * Please call the office if you experience fever, chills, chest pain, shortness of breath, nausea, vomiting, drainage or bleeding * You are scheduled for follow-up with the orthopedic clinic in 5 days * Appreciate input from hospitalist team for management of chronic medical conditions
== END 2024-05-18 12:04 | disposition home health service (06) | DRG 481 ==
LOC: ED 16:13 → MS2 20:35 → ICU 05-16 15:48
PROVIDERS: ADMIT Physician Assistant Surgical; ATTEND Physician Assistant Surgical
DX: F10.231 Alcohol dependence with withdrawal delirium; W01.0XXA Fall on same level from slipping, tripping and stumbling without subsequent striking against object, initial encounter; F41.9 Anxiety disorder, unspecified; E21.3 Hyperparathyroidism, unspecified; R11.15 Cyclical vomiting syndrome unrelated to migraine; G43.909 Migraine, unspecified, not intractable, without status migrainosus; G40.909 Epilepsy, unspecified, not intractable, without status epilepticus; D64.9 Anemia, unspecified; Y92.009 Unspecified place in unspecified non-institutional (private) residence as the place of occurrence of the external cause; K21.9 Gastro-esophageal reflux disease without esophagitis; S72.141A Displaced intertrochanteric fracture of right femur, initial encounter for closed fracture